=== PATIENT | male | born 1950 | race African-American/Black ===

== ENCOUNTER 2022-08-08 11:37 | Inpatient (IN) | payer OTHER, MEDICAID ==
[~2022-08-08] VITALS: Ht 172.7 cm; Wt 68.4 kg
[2022-08-08] MEDS ORDERED: IPRATROPIUM BROM 0.5 MG/2.5ML INH SOL HHN ONE (11:45)
[2022-08-08] MEDS ORDERED: methylPREDNISolone SOD SUCC 125 MG/2 ML VL IV ONE (11:45)
[2022-08-08] MEDS ORDERED: ALBUTEROL SULF 2.5 MG/0.5ML(0.5%) NEB SOLN HHN ONE (11:45)
[2022-08-08 12:17] LABS: Basophils # (auto) 0 10 ^3/uL (0-0.2); Basophils % (auto) 0.5 % (0.0-2.0); Eosinophils # (auto) 0.1 10 ^3/uL (0-0.8); Eosinophils % (auto) 1.9 % (0.0-7.0); Hematocrit 38.8 % (41.0-53.0); Hemoglobin 12.4 g/dL (13.5-17.5); Lymphocytes # (auto) 1.1 10 ^3/uL (0.4-5.4); Lymphocytes % (auto) 13.7 % (10.0-50.0); Mean Corpuscular Hemoglobin 24.2 pg (28.0-32.0); Mean Corpuscular Hgb Conc. 31.9 g/dL (32.0-36.0); Mean Corpuscular Volume 75.9 fL (80.0-100.0); Monocytes # (auto) 1.3 10 ^3/uL (0-1.3); Monocytes % (auto) 16.4 % (0.0-12.0); Neutrophils # (auto) 5.3 10 ^3/uL (1.6-8.6); Neutrophils % (auto) 67.5 % (37.0-80.0); Red Blood Cells 5.12 10^6/uL (4.5-5.90); Red Cell Distribution Width 14.6 % (11.8-14.3); White Blood Cell 7.8 10^3/uL (4.4-10.8)
[2022-08-08 12:34] LABS: Albumin 3.1 g/dL (3.4-5.0); Calcium 7.9 mg/dL (8.5-10.1); Magnesium 3.4 mg/dL (1.6-2.6); Potassium 4.2 mmol/L (3.5-5.1)
[2022-08-08 12:37] LABS: BUN/Creatinine Ratio 12.1; Bilirubin, Total 0.4 mg/dL (0.2-1.0); Total Protein 6.8 g/dL (6.4-8.2)
[2022-08-08] MEDS ORDERED: ASPirin 81 mg TAB PO ONE (13:30)
[2022-08-08] MEDS ORDERED: AMLO-489 PO (16:30)
[2022-08-08] MEDS ORDERED: ATO40T PO (16:30)
[2022-08-08] MEDS ORDERED: PANTOPRAZOLE 40 MG/10 ML VIAL INJ IV ONE (16:45)
[2022-08-08] MEDS ORDERED: IPRATROPIUM BROM 0.5 MG/2.5ML INH SOL NEB PRN (16:45)
[2022-08-08] MEDS ORDERED: ALBUTEROL SULF 2.5 MG/0.5ML(0.5%) NEB SOLN NEB PRN (16:45)
[2022-08-08 17:45] LABS: Cholesterol 86 mg/dL (< 200)
[2022-08-08 17:47] LABS: HDL Cholesterol 60 mg/dL (40-59); LDL Cholesterol 26 mg/dL (< 100); Triglycerides 45 mg/dL (< 150)
[2022-08-08] MEDS: IPRATROPIUM BROM 0.5 MG/2.5ML INH SOL NEB SCH (18:00)
[2022-08-08] MEDS: ALBUTEROL SULF 2.5 MG/0.5ML(0.5%) NEB SOLN NEB SCH (18:00)
[2022-08-08 18:06] LABS: Ferritin 220.9 ng/mL (10-322)
[2022-08-08 18:07] LABS: Folate (Folic Acid) > 24.00 ng/mL (5.38-24)
[2022-08-08 19:50] LABS: INR 0.97 (0.9-1.15)
[2022-08-08] MEDS ORDERED: ALBUTEROL MEDNEB 2.5 mg/3ml NEB ONE (21:32)
[2022-08-08] MEDS: methylPREDNISolone SOD SUCC 125 MG/2 ML VL IV SCH (22:18)
[2022-08-08] MEDS: FERROUS SULFATE 325mg EC TAB PO SCH (22:18)
[2022-08-08 23:10] VITALS: BP 122/63
[2022-08-09] MEDS: IPRATROPIUM BROM 0.5 MG/2.5ML INH SOL NEB SCH ×3 (06:00→20:41)
[2022-08-09] MEDS: ALBUTEROL SULF 2.5 MG/0.5ML(0.5%) NEB SOLN NEB SCH ×2 (06:00→12:00)
[2022-08-09] MEDS: FERROUS SULFATE 325mg EC TAB PO SCH ×3 (06:41→21:33)
[2022-08-09 06:43] LABS: Albumin 2.5 g/dL (3.4-5.0); BUN/Creatinine Ratio 16.9; Calcium 7.9 mg/dL (8.5-10.1); Potassium 4.4 mmol/L (3.5-5.1)
[2022-08-09 06:53] LABS: Bilirubin, Total 0.3 mg/dL (0.2-1.0); Total Protein 6.7 g/dL (6.4-8.2)
[2022-08-09 06:59] LABS: Basophils # (auto) 0 10 ^3/uL (0-0.2); Basophils % (auto) 0.2 % (0.0-2.0); Eosinophils # (auto) 0 10 ^3/uL (0-0.8); Eosinophils % (auto) 0.1 % (0.0-7.0); Hematocrit 35.2 % (41.0-53.0); Hemoglobin 11.3 g/dL (13.5-17.5); Lymphocytes # (auto) 0.6 10 ^3/uL (0.4-5.4); Lymphocytes % (auto) 11.3 % (10.0-50.0); Mean Corpuscular Hemoglobin 24.5 pg (28.0-32.0); Mean Corpuscular Hgb Conc. 32.2 g/dL (32.0-36.0); Mean Corpuscular Volume 76.2 fL (80.0-100.0); Monocytes # (auto) 0.2 10 ^3/uL (0-1.3); Monocytes % (auto) 4.5 % (0.0-12.0); Neutrophils # (auto) 4.1 10 ^3/uL (1.6-8.6); Neutrophils % (auto) 83.9 % (37.0-80.0); Nucleated Red Blood Cells % 0.1 %; Red Blood Cells 4.62 10^6/uL (4.5-5.90); Red Cell Distribution Width 14.2 % (11.8-14.3); White Blood Cell 4.9 10^3/uL (4.4-10.8)
[2022-08-09] MEDS: amLODIPine BESYLATE 5 MG TAB PO SCH (08:59)
[2022-08-09] MEDS: methylPREDNISolone SOD SUCC 125 MG/2 ML VL IV SCH ×2 (08:59→21:33)
[2022-08-09] MEDS: ATORVASTATIN 20 MG TAB PO SCH (09:00)
[2022-08-09] MEDS: ASPirin 81 mg TAB PO SCH (09:00)
[2022-08-09] MEDS ORDERED: ENOXAPARIN SOD 40 MG/0.4 ML SYRINGE SC SCH (10:00)
[2022-08-09] MEDS ORDERED: PANTOPRAZOLE 40 MG/10 ML VIAL INJ IV SCH (10:00)
[2022-08-09 11:42] VITALS: BP 127/68
[2022-08-09] MEDS ORDERED: ALLO100T PO (12:27)
[2022-08-09] MEDS ORDERED: DOXYCYCLINE 100 MG TAB/CAP PO ONE (15:00)
[2022-08-09] MEDS ORDERED: ALBUTEROL MEDNEB 2.5 mg/3ml NEB NEB PRN (15:30)
[2022-08-09] MEDS: ALBUTEROL MEDNEB 2.5 mg/3ml NEB NEB SCH (20:40)
[2022-08-09] MEDS: DOXYCYCLINE 100 MG TAB/CAP PO SCH (21:33)
[2022-08-09 22:00] VITALS: BP 124/61
[2022-08-09 23:56] LABS: Urine Bacteria NONE SEEN /hpf (None Seen); Urine Blood Negative /uL (Negative); Urine Specific Gravity 1.017 (1.001-1.035); Urine WBC 2 /hpf (0 - 3)
[2022-08-10] MEDS ORDERED: HYDR-4902 PO (00:03)
[2022-08-10 05:00] VITALS: BP 116/68
[2022-08-10] MEDS: FERROUS SULFATE 325mg EC TAB PO SCH ×2 (05:48→18:46)
[2022-08-10] MEDS: HYDROcodone-ACET 5/325MG TAB PO PRN ×2 (06:12→18:46)
[2022-08-10] MEDS: ALBUTEROL MEDNEB 2.5 mg/3ml NEB NEB SCH ×3 (06:47→18:50)
[2022-08-10] MEDS: IPRATROPIUM BROM 0.5 MG/2.5ML INH SOL NEB SCH ×3 (06:47→18:50)
[2022-08-10] MEDS: ASPirin 81 mg TAB PO SCH (08:56)
[2022-08-10] MEDS: methylPREDNISolone SOD SUCC 125 MG/2 ML VL IV SCH ×2 (08:56→20:53)
[2022-08-10] MEDS: ALLOPURINOL 100 MG TAB PO SCH (08:57)
[2022-08-10] MEDS: amLODIPine BESYLATE 5 MG TAB PO SCH (08:57)
[2022-08-10] MEDS: DOXYCYCLINE 100 MG TAB/CAP PO SCH ×2 (08:57→20:53)
[2022-08-10] MEDS: PANTOPRAZOLE 40 MG TAB PO SCH (08:57)
[2022-08-10] MEDS: ATORVASTATIN 20 MG TAB PO SCH (08:58)
[2022-08-10 09:00] VITALS: BP 118/62
[2022-08-10 13:00] VITALS: BP 111/62
[2022-08-10 16:32] VITALS: BP 119/60
[2022-08-10 22:00] VITALS: BP 121/56
[2022-08-11 05:00] VITALS: BP 107/60
[2022-08-11] MEDS: IPRATROPIUM BROM 0.5 MG/2.5ML INH SOL NEB SCH (05:50)
[2022-08-11] MEDS: ALBUTEROL MEDNEB 2.5 mg/3ml NEB NEB SCH (05:50)
[2022-08-11] MEDS: FERROUS SULFATE 325mg EC TAB PO SCH (06:38)
[2022-08-11 09:00] VITALS: BP 122/80
[2022-08-11] MEDS ORDERED: DOX100T PO (09:22)
[2022-08-11] MEDS ORDERED: METH4PAK PO (09:22)
[2022-08-11] MEDS: ATORVASTATIN 20 MG TAB PO SCH (09:44)
[2022-08-11] MEDS: ALLOPURINOL 100 MG TAB PO SCH (09:44)
[2022-08-11] MEDS: PANTOPRAZOLE 40 MG TAB PO SCH (09:44)
[2022-08-11] MEDS: DOXYCYCLINE 100 MG TAB/CAP PO SCH (09:44)
[2022-08-11] MEDS: methylPREDNISolone SOD SUCC 125 MG/2 ML VL IV SCH (09:44)
[2022-08-11] MEDS: ASPirin 81 mg TAB PO SCH (09:44)
[2022-08-11] MEDS: amLODIPine BESYLATE 5 MG TAB PO SCH (09:45)
[2022-08-11 10:40] VITALS: BP 122/80
== END 2022-08-11 11:48 | disposition home or self-care (01) | DRG 193 ==
LOC: EDBD 11:37 → ER 11:37 → EDUNIT# 11:37 → TELE 16:17 → TELE-E-ADS 08-09 11:31 → TELE-CENTR 08-09 17:45 → CENTRAL 08-10 06:02
PROVIDERS: ADMIT Registered Nurse; ATTEND Internal Medicine
DX: J18.9 Pneumonia, unspecified organism (principal); E43 Unspecified severe protein-calorie malnutrition; J96.01 Acute respiratory failure with hypoxia; J44.1 Chronic obstructive pulmonary disease with (acute) exacerbation; J44.0 Chronic obstructive pulmonary disease with (acute) lower respiratory infection; D50.9 Iron deficiency anemia, unspecified; I10 Essential (primary) hypertension; E78.5 Hyperlipidemia, unspecified; Z20.822 Contact with and (suspected) exposure to COVID-19; Z85.118 Personal history of other malignant neoplasm of bronchus and lung; Z85.46 Personal history of malignant neoplasm of prostate; Z68.22 Body mass index [BMI] 22.0-22.9, adult
CPT/HCPCS: 36415; 36600; 71045; 80053; 80061; 81001; 82607; 82728; 82746; 82805; 83036; 83540; 83550; 83605; 83615; 83735; 83880; 84443; 84484; 85025; 85045; 85384; 85610; 87040; 87426; 87804; 93005; 93306; 94640; 96374; 96375; 99291; C9113; G0378

== ENCOUNTER 2024-12-18 20:05 | Inpatient (IN) | payer OTHER, MEDICAID ==
[~2024-12-18] VITALS: Ht 167.6 cm; Wt 72.9 kg
[~2024-12-18 20:05] MED LIST: ALLO100T PO; AMLO1TAB22 PO; ATOR-507 PO; DOX100T PO; HYDR-4902 PO; METH4PAK PO
[2024-12-18] MEDS: ALBUTEROL SULF 2.5 MG/0.5ML(0.5%) NEB SOLN HHN ONE (20:43)
[2024-12-18] MEDS: IPRATROPIUM BROM 0.5 MG/2.5ML INH SOL HHN ONE (20:43)
--- NOTE | 2024-12-18 20:45 | ED.PDOC ---
SOB-HPI HPI Comments This is a 74-year-old male who comes in with chief complaint of shortness a breath. The patient states that he was short of breath and tried a breathing treatment at home without any significant relief. The patient then went to the [facility] where they also gave him a breathing treatment without significant relief. He states that the symptoms actually started on Monday. When he got to the [facility], 911 was called and the patient was transported to our facility. EN route, the patient received another breathing treatment without significant relief. Upon arrival, the patient is still taking his breathing treatment and is still stating that he is short of breath. The patient denies any chest pain, coughing or fever. He does have a history of COPD. Time Seen by MD: 20:11 Primary Care Provider: MARKIE King notes: Nurses Notes, Manager Registration Notes, Medications, Allergies (No allergies to medications) Information Source: Patient, Emergency Med Personnel Mode of Arrival: EMS Severity: Severe Timing: Days Duration: Since onset Context: At Rest PE Risk Factors: None History of: COPD, Anxiety Prehospital treatment: Beta-Agonist Tx, Commission Associate, IVF Modifying Factors: Nothing Associated Signs and Symptoms: None If cough with SOB: Non-Productive Past Medical History PAST MEDICAL HISTORY: Cancer (Cancer of the lung), COPD, High Lipids, HTN Surgical History: Denies all surgeries Family History Family History: Family hx of lung carrillo Family History (Other): Alzheimer's Social History Smoker: Non-Smoker Alcohol: Occasionally Drugs: Denies Drug Use Lives In: Home Constitutional: denies: chills, diaphoresis, fatigue, fever, malaise, sweats, weakness, others EENTM: denies: blurred vision, double vision, ear bleeding, ear discharge, ear drainage, ear pain, ear ringing, eye pain, eye redness, hearing loss, mouth pain, mouth swelling, nasal discharge, nose bleeding, nose congestion, nose pain, photophobia, tearing, throat pain, throat swelling, voice changes, others Respiratory: reports: shortness of breath, wheezing; denies: cough, hemoptysis, orthopnea, SOB at rest, SOB with excertion, stridor, others Cardiovascular: denies: chest pain, dizzy spells, diaphoresis, Dyspnea on exertion, edema, irregular heart beat, left arm pain, lightheadedness, palpitations, PND, syncope, others Gastrointestinal: denies: abdomen distended, abdominal pain, blood streaked bowels, constipated, diarrhea, dysphagia, difficulty swallowing, hematemesis, m mattie, nausea, poor appetite, poor fluid intake, rectal bleeding, rectal pain, vomiting, others Genitourinary: denies: burning, dysuria, flank pain, frequency, hematuria, incontinence, penile discharge, penile sore, pain, testicle pain, testicle swelling, urgency, others Neurological: denies: dizziness, fainting, headache, left sided numbness, left sided weakness, numbness, paresthesia, pre-existing deficit, right sided numbness, right sided weakness, seizure, speech problems, tingling, tremors, weakness, others Musculoskeletal: denies: back pain, gout, joint pain, joint swelling, muscle pain, muscle stiffness, neck pain, others Integumetry: denies: bruises, change in color, change in hair/nails, dryness, laceration, lesions, lumps, rash, wounds, others Allergic/Immunocompromised: denies: Difficulty Healing, Frequent Infections, Hives, Itching, others Hematologic/Lymphatic: denies: anemia, blood clots, easy bleeding, easy bruising, swollen glands, others Endocrine: denies: excessive hunger, excessive sweating, excessive thirst, excessive urination, flushing, intolerance to cold, intolerance to heat, unexplained weight gain, unexplained weight loss, others Psychiatric: denies: anxiety, bipolar disorder, depression, hopeless, panic disorder, schizophrenia, sleepless, suicidal, others Physical Exam General Appearance: Moderate Distress HEENT: Normal ENT Inspection, Pharynx Normal, TMs Normal Neck: Full Range of Motion, Non-Tender, Normal, Normal Inspection Respiratory: Accessory Muscle Use, Chest Non-Tender, Lungs Clear, Respiratory Distress, Wheezing Cardiovascular: No Edema, No JVD, No Murmur, No Gallop, Normal Peripheral Pulses, Regular Rate/Rhythm Breast Exam: Deferred Gastrointestinal: No Organomegaly, Non Tender, No Pulsatile Mass, Normal Bowel Sounds, Soft Genitalia: Deferred Pelvic: Deferred Rectal: Deferred Extremities: No calf tenderness, Normal capillary refill, No pedal edema Musculoskeletal : Apperance: Normal Neurologic: Alert, spooler operator automatic II-XII nml as Tested, Motor Weakness, Normal Affect, Normal Mood, No Sensory Deficits Cerebellar Function: Normal Reflexes: Normal Skin: Dry, Normal Color, Warm Lymphatic: No Adenopathy Was a procedure done? Was a procedure done?: No Differential Dx Differential Diagnosis: Asthma, Bronchitis, CHF, COPD, Pneumonia X-Ray, Labs, Meds, VS Vital Signs Date Time Temp Pulse Resp B/P (MAP) Pulse Ox O2 Delivery O2 Flow Rate FiO2 12/18/24 20:43 18 95 Nasal Cannula* 6 44 12/18/24 20:15 98.5 98 20 138/76 (96) 96 98.5 Lab Test 12/18/24 20:39 Range/Units White Blood Count 12.7 H 4.4-10.8 10^3/uL Red Blood Count 5.77 4.5-5.90 10^6/uL Hemoglobin 12.5 L 13.5-17.5 g/dL Hematocrit 39.0 L 41.0-53.0 % Mean Corpuscular Volume 67.7 L 80.0-100.0 fL Mean Corpuscular Hemoglobin 21.6 L 28.0-32.0 pg Mean Corpuscular Hemoglobin Concent 31.9 L 32.0-36.0 g/dL Red Cell Distribution Width 19.8 H 11.8-14.3 % Platelet Count 276 140-450 10^3/uL Mean Platelet Volume 9.0 6.9-10.8 fL Neutrophils (%) (Auto) 85.7 H 37.0-80.0 % Lymphocytes (%) (Auto) 6.5 L 10.0-50.0 % Monocytes (%) (Auto) 7.7 0.0-12.0 % Eosinophils (%) (Auto) 0.0 0.0-7.0 % Basophils (%) (Auto) 0.1 0.0-2.0 % Neutrophils # (Auto) 10.8 H 1.6-8.6 10 ^3/uL Lymphocytes # (Auto) 0.8 0.4-5.4 10 ^3/uL Monocytes # (Auto) 1.0 0-1.3 10 ^3/uL Eosinophils # (Auto) 0 0-0.8 10 ^3/uL Basophils # (Auto) 0 0-0.2 10 ^3/uL Nucleated Red Blood Cells 0.0 % Platelet Estimate Pending Sodium Level 137 136-145 mmol/L Potassium Level 3.4 L 3.5-5.1 mmol/L Chloride Level 97 L 98-107 mmol/L Carbon Dioxide Level 26 20-31 mmol/L Anion Gap 14 5-15 Blood Urea Nitrogen 19 9-23 mg/dL Creatinine 1.11 0.700-1.30 mg/dL Glomerular Filtration Rate Calc 70 >90 mL/min BUN/Creatinine Ratio 17.1 10.0-20.0 Serum Glucose 150 H 74-106 mg/dL Calcium Level 8.8 8.7-10.4 mg/dL B-Type Natriuretic Peptide 504.75 0-100 pg/mL Current Medications Medications (Trade) Dose Ordered Sig/Nirav Route Start Time Stop Time Status Last Admin Ipratropium [place] (Atrovent Medneb) 1 mg ONCE ONCE N 12/18/24 20:15 12/18/24 20:16 DC 12/18/24 20:43 Albuterol (Ventolin Medneb) 20 mg ONCE ONCE HHN 12/18/24 20:15 12/18/24 20:16 DC 12/18/24 20:43 IV Hep-Lock was established The patient is being given a breathing treatment of albuterol and Atrovent The patient is also now given Solu-Medrol 125 mg IV push The patient is being admitted to the hospitalist The chest x-ray shows no sign of any infiltrates at this time We did speak with Markie and mely authorization for admission The patient is currently now on 3 L nasal cannula We did tried to turn the oxygen somewhat down but the patient's oxygen saturat ion drops down into the 90% range We feel that the patient is unstable for transfer at this time The [place] authorization number for admission is [id number] Images Reviewed?: Images reviewed and evaluated by me Time of 1ST Reevaluation: 20:42 Reevaluation 1ST: Unchanged Patient Education/Counseling: Diagnosis, Treatment, Prognosis Family Education/Counseling: No Family Present SEPSIS Sepsis Screen Physician Orders Complete Blood Count (12/18/24 20:15) Med Neb Initial Treatment (12/18/24 20:15) Chest Portable (12/18/24 20:15) Heplock Iv (12/18/24 20:15) Pulse Oximetry (12/18/24 20:15) Commission Associate (12/18/24 20:15) Blood Pressure (12/18/24 20:15) Electrocardigram (12/18/24 20:15) Rbc Morphology (12/18/24 20:39) Vital Signs Date Time Temp Pulse Resp B/P (MAP) Pulse Ox O2 Delivery O2 Flow Rate FiO2 12/18/24 20:43 18 95 Nasal Cannula* 6 44 12/18/24 20:15 98.5 98 20 138/76 (96) 96 98.5 Laboratory Tests Test 12/18/24 20:39 White Blood Count 12.7 10^3/uL (4.4-10.8) H Medications Medications Dose Ordered Sig/Nirav Route Start Time Stop Time Status Last Admin Dose Admin Albuterol 20 mg ONCE ONCE N 12/18/24 20:15 12/18/24 20:16 DC 12/18/24 20:43 Ipratropium [place] 1 mg ONCE ONCE [facility] 12/18/24 20:15 12/18/24 20:16 DC 12/18/24 20:43 Departure 1 Departure Time of Disposition: 20:44 Impression: Primary Impression: Acute respiratory failure Qualified Codes: J96.01 - Acute respiratory failure with hypoxia Additional Impression: COPD exacerbation Disposition: 09 ADMITTED INPATIENT Admit to: Tele Condition: Fair Critical Care Note Critical Care Time?: Yes (55 min-critical care time only) Stability Stability form required: Yes Unstable for transfer: Telemetry monitoring (Telemetry monitoring required), ED Physician Assesment (Clinical assesment) Heart Score Heart Score: Heart Score Response (Comments) Value History N/A 0 EKG N/A 0 Age N/A 0 Risk Factors N/A 0 Troponin N/A 0 Total 0 ABDON MAYNARD MD Dec 18, 2024 20:44
[2024-12-18 20:58] LABS: Basophils # (auto) 0 10 ^3/uL (0-0.2); Basophils % (auto) 0.1 % (0.0-2.0); Eosinophils # (auto) 0 10 ^3/uL (0-0.8); Hemoglobin 12.5 g/dL (13.5-17.5); Lymphocytes # (auto) 0.8 10 ^3/uL (0.4-5.4); White Blood Cell 12.7 10^3/uL (4.4-10.8)
[2024-12-18 21:02] LABS: Lymphocytes % (auto) 6.5 % (10.0-50.0); Mean Corpuscular Hemoglobin 21.6 pg (28.0-32.0); Mean Corpuscular Hgb Conc. 31.9 g/dL (32.0-36.0); Mean Corpuscular Volume 67.7 fL (80.0-100.0); Monocytes % (auto) 7.7 % (0.0-12.0); Neutrophils # (auto) 10.8 10 ^3/uL (1.6-8.6); Neutrophils % (auto) 85.7 % (37.0-80.0); Platelet Count (auto) 276 10^3/uL (140-450); Red Blood Cells 5.77 10^6/uL (4.5-5.90); Red Cell Distribution Width 19.8 % (11.8-14.3)
[2024-12-18 21:09] LABS: Sodium 137 mmol/L (136-145)
[2024-12-18 21:10] LABS: Anion Gap 14 (5-15); Carbon Dioxide 26 mmol/L (20-31)
[2024-12-18 21:11] LABS: Calcium 8.8 mg/dL (8.7-10.4)
[2024-12-18 21:16] LABS: BUN/Creatinine Ratio 17.1 (10.0-20.0); Blood Urea Nitrogen 19 mg/dL (9-23)
[2024-12-18 21:23] LABS: Chloride 97 mmol/L (98-107); Glucose 150 mg/dL (74-106); Potassium 3.4 mmol/L (3.5-5.1)
--- NOTE | 2024-12-18 21:57 | DVH ---
EXAM: XY CHEST PORTABLE TECHNIQUE: Single frontal chest radiograph CLINICAL HISTORY: sob COMPARISON: CHEST PORTABLE on DOS: 08/08/22, CXRP on DOS: 08/08/22 Findings/Impression: Frontal chest radiograph demonstrates no acute osseous or superficial soft tissue abnormalities. The trachea is midline. The cardiac silhouette and mediastinum are within normal limits. Mildly coarsened interstitial markings. Left apical capping. Small right pleural effusion and/or atelectasis. A superimposed infectious process is not excluded. Medial right lower lung field granuloma versus external artifact. No pneumothorax.
[2024-12-18 22:25] LABS: Anisocytosis Slight; Hypochromia Slight; Platelet Estimate Adequate
[2024-12-18 22:26] LABS: Ovalocytes FEW
[2024-12-18] MEDS: LORazepam 0.5 MG TAB PO ONE (23:13)
[2024-12-18] MEDS: methylPREDNISolone SOD SUCC 125 MG/2 ML VL IV ONE (23:36)
--- NOTE | 2024-12-18 23:42 | DVHHPRES ---
History of Present Illness Resident Creating Document: JUAN RIVERA RESIDENT History of Present Illness 74-year-old male patient with past medical history of COPD, lung cancer with status post resection in 2023, prostate cancer status post remission in 2023, hypertension, hyperlipidemia presented with complaints of shortness of breath that started since Monday. Patient mentioned that patient had vomiting episodes last week likely after eating "some wrong food". He also mentioned associated chills, but denied chest pain, cough, nausea, vomiting, abdominal pain. He also mentioned associated pedal edema. Patient takes 3 L of oxygen at home. He denied any headache, dizziness, seizures, orthopnea, PND, diarrhea, constipation. Past medical history COPD, lung cancer with status post resection in 2023, prostate cancer status pos t remission in 2023, hypertension, hyperlipidemia Past surgical history Lung resection 2023, prostate surgery 2023 Family history Nonsignificant Social history Patient quit smoking in 2013 Denied current smoking, alcohol, marijuana or any other drug intake Review of Systems Review of Systems As described in the HPI. Allergies: Coded Allergies: NO KNOWN ALLERGIES (Unverified , 08/08/22) Exam Vital Signs Vital Signs Date Time Temp Pulse Resp B/P (MAP) Pulse Ox O2 Delivery O2 Flow Rate FiO2 12/18/24 20:43 18 95 Nasal Cannula* 6 44 12/18/24 20:15 98.5 98 138/76 (96) 98.5 Exam Examination General Appearance: Alert, Oriented X3, Cooperative, No acute distress HEENT: EOMI Respiratory: Bilateral wheezing Cardiovascular: Regular rate, Normal S1, Normal S2 Abdominal: Normal bowel sounds Extremities: No cyanosis, No edema, Normal pulses, No tenderness/swelling Skin: No rashes, No breakdown Neuro: Normal gait, Normal speech, Strength at 5/5 X4 ext, Normal tone, Sens ation intact, Cranial nerves 3-12 NL, Reflexes 2+ Psych/Mental Status: Mental status NL, Mood NL Labs/Xrays Labs Test 12/18/24 20:39 Range/Units White Blood Count 12.7 H 4.4-10.8 10^3/uL Red Blood Count 5.77 4.5-5.90 10^6/uL Hemoglobin 12.5 L 13.5-17.5 g/dL Hematocrit 39.0 L 41.0-53.0 % Mean Corpuscular Volume 67.7 L 80.0-100.0 fL Mean Corpuscular Hemoglobin 21.6 L 28.0-32.0 pg Mean Corpuscular Hemoglobin Concent 31.9 L 32.0-36.0 g/dL Red Cell Distribution Width 19.8 H 11.8-14.3 % Platelet Count 276 140-450 10^3/uL Mean Platelet Volume 9.0 6.9-10.8 fL Neutrophils (%) (Auto) 85.7 H 37.0-80.0 % Lymphocytes (%) (Auto) 6.5 L 10.0-50.0 % Monocytes (%) (Auto) 7.7 0.0-12.0 % Eosinophils (%) (Auto) 0.0 0.0-7.0 % Basophils (%) (Auto) 0.1 0.0-2.0 % Neutrophils # (Auto) 10.8 H 1.6-8.6 10 ^3/uL Lymphocytes # (Auto) 0.8 0.4-5.4 10 ^3/uL Monocytes # (Auto) 1.0 0-1.3 10 ^3/uL Eosinophils # (Auto) 0 0-0.8 10 ^3/uL Basophils # (Auto) 0 0-0.2 10 ^3/uL Nucleated Red Blood Cells 0.0 % Platelet Estimate Adequate Hypochromasia (manual) Slight Anisocytosis (manual) Slight Microcytosis Marked Ovalocytes Few Sodium Level 137 136-145 mmol/L Potassium Level 3.4 L 3.5-5.1 mmol/L Chloride Level 97 L 98-107 mmol/L Carbon Dioxide Level 26 20-31 mmol/L Anion Gap 14 5-15 Blood Urea Nitrogen 19 9-23 mg/dL Creatinine 1.11 0.700-1.30 mg/dL Glomerular Filtration Rate Calc 70 >90 mL/min BUN/Creatinine Ratio 17.1 10.0-20.0 Serum Glucose 150 H 74-106 mg/dL Calcium Level 8.8 8.7-10.4 mg/dL B-Type Natriuretic Peptide 504.75 0-100 pg/mL Assessment/Plan Assessment/Plan Assessment/plan # acute on chronic hypoxic respiratory failure likely due to COPD exacerbation Currently on 6 L # acute COPD exacerbation Prednisolone 40 mg daily for five days IV antibiotics, ceftriaxone and azithromycin for possible underlying pneumonia Ipratropium albuterol p.r.n. Chest x-ray COVID flu MRSA screen #?sepsis due to CAP -judicious use of IV fluids -IV antibiotics -lactic acid #? Community-acquired pneumonia, Gram-positive/Gram-negative -MRSA screen IV antibiotics # bilateral pedal pitting edema Echocardiogram BNP # history of lung and prostate cancer # hypertension Resume home Meds # hyperlipidemia Resume home Meds Case discussion with Dr. Childs Plan discussed with: Patient, Other My Orders Orders - JUAN RIVERA RESIDENT Procedure Category Date Status Time Admit ADMIT 12/18/24 Transmitted 23:40 Oxygen By Nasal RT 12/18/24 Transmitted Cannula 23:40 Stat Ekg For Chest [facility] 12/18/24 In Process Pain 23:40 Notify Md Of Changes [facility] 12/18/24 In Process From Base 23:40 Improvement Intern For [facility] 12/18/24 In Process 24 Hours 23:40 Emergency Dysrhythmia [facility] 12/18/24 In Process Protocol 23:40 Rhythm Strips Once [facility] 12/18/24 In Process Every Shift 23:40 Date of Service: Dec 18, 2024 Billing Provider: STEFANI CHILDS MD Common Visit Codes: [id number] INP/OBS CARE (HIGH) Secondary Visit Codes: [id number] CARE PLAN 30 MINUTES JUAN RIVERA RESIDENT Dec 18, 2024 23:42
[2024-12-19] VITALS (21 sets, daily range): BP systolic 132–176; BP diastolic 62–86; PULSE 80–108; RESP 16–26; TEMP 97.6–98.2; O2SAT 90–100
[2024-12-19] MEDS: IPRATROPIUM BROM 0.5 MG/2.5ML INH SOL NEB PRN (02:02)
[2024-12-19] MEDS: ALBUTEROL SULF 2.5 MG/0.5ML(0.5%) NEB SOLN NEB PRN (02:02)
[2024-12-19] MEDS: POTASSIUM EFFERVESENT TAB 25 MEQ PO ONE (04:32)
[2024-12-19] MEDS: cefTRIAXone 1GM/50ML D5W 50 ML IV ONE (04:33)
[2024-12-19] MEDS: AZITHROMYCIN 500MG/ 250ML 250 ML IV ONE (04:41)
[2024-12-19] MEDS: IPRATROPIUM BROM 0.5 MG/2.5ML INH SOL NEB ONE (04:54)
[2024-12-19] MEDS: ALBUTEROL SULF 2.5 MG/0.5ML(0.5%) NEB SOLN NEB ONE (04:54)
[2024-12-19] MEDS: SODIUM CHLORIDE 0.9% 250 ML IV ONE (06:50)
[2024-12-19 06:52] LABS: Urine Bacteria None Seen /hpf (None Seen)
[2024-12-19 07:06] LABS: Urine Blood TRACE /uL (Negative); Urine Clarity Clear (Clear); Urine Color Yellow (Yellow); Urine Protein, UAD 1+ (Negative); Urine Specific Gravity 1.021 (1.001-1.035); Urine Squamous Epithelial Cell FEW /hpf (<5); Urine Urobilinogen Normal (Negative); Urine WBC 1 /HPF (0-3); Urine pH 5.5 (5.0-9.0)
[2024-12-19 07:52] LABS: Mean Corpuscular Hemoglobin 21.5 pg (28.0-32.0)
[2024-12-19 07:55] LABS: Hematocrit 38.2 % (41.0-53.0); Hemoglobin 12.1 g/dL (13.5-17.5); Mean Corpuscular Hgb Conc. 31.5 g/dL (32.0-36.0); Mean Corpuscular Volume 68.1 fL (80.0-100.0); Platelet Count (auto) 234 10^3/uL (140-450); Red Blood Cells 5.62 10^6/uL (4.5-5.90); Red Cell Distribution Width 19.9 % (11.8-14.3); White Blood Cell 12.6 10^3/uL (4.4-10.8)
[2024-12-19] MEDS: predniSONE 20 MG TAB PO SCH (07:55)
[2024-12-19 08:01] LABS: Basophils % (manual) 0 (0.0-2.0); Blast Cells 0; Eosinophils % (manual) 0 (0-7); Metamyelocytes % 0; Myelocytes % 0; Promyelocytes % 0; Reactive Lymphocytes 0
[2024-12-19 08:10] LABS: Albumin 3.9 g/dL (3.2-4.8); Anion Gap 14 (5-15); BUN/Creatinine Ratio 15.7 (10.0-20.0); Blood Urea Nitrogen 16 mg/dL (9-23); Carbon Dioxide 23 mmol/L (20-31); Magnesium 2.3 mg/dL (1.6-2.6); Potassium 3.9 mmol/L (3.5-5.1)
[2024-12-19 08:11] LABS: Bilirubin, Total 0.4 mg/dL (0.2-1.0)
[2024-12-19 08:12] LABS: Alanine Aminotransferase 48 U/L (7-40); Alkaline Phosphatase 215 U/L (46-116); Aspartate Aminotransferase 50 U/L (<34); Calcium 8.5 mg/dL (8.7-10.4); Chloride 97 mmol/L (98-107); Glucose 227 mg/dL (74-106); Sodium 134 mmol/L (136-145)
[2024-12-19 08:16] LABS: COVID19 ANTIGEN SOFIA FIA NEGATIVE (NEGATIVE); Rapid Influenza A Negative (Negative); Rapid Influenza B Negative (Negative)
[2024-12-19] MEDS: ENOXAPARIN SOD 40 MG/0.4 ML SYRINGE SC SCH (08:38)
[2024-12-19 08:41] LABS: Band Neutrophils % (manual) 4; Lymphocytes % (manual) 4 (10.0-50.0); Monocytes % (manual) 6 (0-12)
[2024-12-19] MEDS: LORazepam 0.5 MG TAB PO PRN (08:42)
[2024-12-19] MEDS: cefTRIAXone 1GM/50ML D5W 50 ML IV SCH (08:42)
[2024-12-19 08:44] LABS: Anisocytosis Slight; Hypochromia Slight; Ovalocytes FEW; Platelet Estimate Adequate; Tear Drop Cells FEW
[2024-12-19] MEDS: amLODIPine BESYLATE 5 MG TAB PO SCH (10:47)
[2024-12-19] MEDS: FUROSEMIDE 40 MG/4 ML VIAL IV SCH (10:48)
[2024-12-19] MEDS ORDERED: methylPREDNISolone SOD SUCC 40 MG/ML VL IV SCH (14:00)
--- NOTE | 2024-12-19 14:41 | DVHPN2 ---
Progress Note Date Seen: Dec 19, 2024 Medical Necessity Reason Pt with a Central, PICC or Fol: No Subjective Patient reports: No new complaints Review of Systems: HEENT:Normal, CVS:Normal, RESPIRATORY:Normal, GI:Normal, :Normal, MSK:Normal, NEURO:Normal Objective vital signs Vital Sign Date Time Temp Pulse Resp B/P (MAP) Pulse Ox O2 Delivery O2 Flow Rate FiO2 12/19/24 14:04 98 20 100 12/19/24 13:58 Nasal Cannula* 4 36 12/19/24 12:00 138/90 (106) 12/19/24 09:25 98.1 98.1 medications Current Medications Medications Dose Ordered Sig/Nirav Route Start Time Stop Time Status Last Admin Dose Admin Ceftriaxone Sodium 50 ml @ 100 mls/hr DAILY@09 IV 12/19/24 09:00 12/19/24 08:42 100 MLS/HR Albuterol 2.5 mg Q4HPRN PRN NEB 12/19/24 00:00 12/19/24 13:57 2.5 MG Enoxaparin Sodium 40 mg DAILY SC 12/19/24 10:00 Amlodipine Besylate 5 mg DAILY PO 12/19/24 10:00 12/19/24 10:47 5 MG Atorvastatin Calcium 40 mg HS PO 12/19/24 22:00 Lorazepam 1 mg Q12HP PRN PO 12/19/24 08:30 12/19/24 08:42 1 MG Furosemide 40 mg DAILY IV 12/19/24 10:00 12/19/24 10:48 40 MG Methylprednisolone Sodium Succinate 20 mg BID IV 12/19/24 22:00 Albuterol 2.5 mg Q6HWA NEB 12/19/24 18:00 Ipratropium [place] 0.5 mg Q6HWA NEB 12/19/24 18:00 Allopurinol 100 mg DAILY PO 12/20/24 10:00 Azithromycin 500 mg DAILY PO 12/20/24 10:00 Examination: GENERAL:Normal, HEENT:Normal, NECK:Normal, LUNGS:Normal, LUNGS:Abnormal (on oxygen), CVS:Normal, ABDOMEN:Normal, MSK:Normal, MSK:Abnormal (edema++), SKIN:Normal, NEURO:Normal, :Normal laboratory and microbiology Laboratory Tests 12/19/24 06:33 Test 12/19/24 06:33 Range/Units Serum Glucose 227 H 74-106 mg/dL Problem List/Assessment/Plan Problem List/Assessment/Plan * Acute on chronic respiratory failure: cont oxygen * Chronic obstructive pulmonary disease exacerbation: cont meds * Questionable pneumonia: gram positive/neg: cont antibiotics * Hypertension. * Lung cancer with a history of metastasis s/p surgery * Prostate cancer. * acute diastolic/systolic heart failure: lasix iv, echo unstable for transfer advance care planning- full code- time spent 19 mins Plan discussed with: Patient My Orders My Orders Orders - PEDRO EVANS MD Procedure Category Date Status Time Methylprednisolone PHA 12/19/24 In Process Sod Succ (Solu Medrol 22:00 Albuterol Medneb PHA 12/19/24 In Process (Ventolin Medneb) 18:00 Ipratropium Medneb PHA 12/19/24 In Process (Atrovent Medneb) 18:00 Allopurinol Tablet PHA 12/20/24 In Process (Zyloprim Tablet) 10:00 Azithromycin Tablet PHA 12/20/24 In Process (Zithromax Tablet) 10:00 Complete Blood Count LAB 12/20/24 Verified 06:00 Comprehensive LAB 12/20/24 Verified Metabolic Panel 06:00 Date of Service: Dec 19, 2024 Billing Provider: PEDRO EVANS MD Common Visit Codes: [id number] INP/OBS CARE(HIGH) Secondary Visit Codes: [id number] CARE PLAN 30 MINUTES PEDRO EVANS MD Dec 19, 2024 14:41
--- NOTE | 2024-12-19 16:06 | DVH ---
EXAM: NM NM VQ SCAN HISTORY: PULMONARY EMBOLISM COMPARISON: None TECHNIQUE: Following the administration of the ventilation agent, standard projections of the lungs were acquired. The same images were repeated after administration of the perfusion agent. Findings: Ventilation images demonstrate homogenous distribution of radiotracer throughout both lungs. Perfusion images demonstrate homogeneous distribution of radiotracer throughout both lungs. No periph eral wedge-shaped moderate or large subsegmental or segmental mismatched perfusion defects to suggest acute pulmonary embolism. Impression: 1. Based on PIOPED criteria, low probability for pulmonary embolism.
[2024-12-19] MEDS ORDERED: ASPI1TAB20 PO (18:06)
[2024-12-19] MEDS ORDERED: VENL75CA78 PO (18:06)
[2024-12-19] MEDS ORDERED: MEGE20TA4 PO (18:06)
[2024-12-19] MEDS ORDERED: MELO7.5T7 PO (18:06)
[2024-12-19] MEDS ORDERED: POTA-36 PO (18:06)
[2024-12-19] MEDS ORDERED: SENN-58 PO (18:06)
[2024-12-19] MEDS ORDERED: FURO20TA3 PO (18:06)
[2024-12-19] MEDS ORDERED: PRED20TA2 PO (18:06)
[2024-12-19] MEDS ORDERED: LACT10PA2 PO (18:06)
[2024-12-19] MEDS ORDERED: NALO0.4I4 IJ (18:06)
[2024-12-19] MEDS ORDERED: LORA-1123 PO (18:06)
[2024-12-19] MEDS ORDERED: TAMS0.4C39 PO (18:06)
[2024-12-19] MEDS ORDERED: [UNRECOGNIZED DRUG - CODE] PO (18:06)
[2024-12-19] MEDS ORDERED: B-CO1CAP18 PO (18:06)
[2024-12-19] MEDS ORDERED: ALEN70TA74 PO (18:06)
[2024-12-19] MEDS: ALBUTEROL SULF 2.5 MG/0.5ML(0.5%) NEB SOLN NEB SCH (18:33)
[2024-12-19] MEDS: IPRATROPIUM BROM 0.5 MG/2.5ML INH SOL NEB SCH (18:33)
[2024-12-19] MEDS: ATORVASTATIN 20 MG TAB PO SCH (23:32)
[2024-12-19] MEDS: methylPREDNISolone SOD SUCC 40 MG/ML VL IV SCH (23:33)
[2024-12-20] VITALS (18 sets, daily range): BP systolic 125–147; BP diastolic 76–88; PULSE 69–110; RESP 16–20; TEMP 86.5–98.5; O2SAT 90–100
[2024-12-20] MEDS: HYDROcodone-ACET 10/325MG TAB PO ONE (04:11)
[2024-12-20] MEDS ORDERED: HYDROcodone-ACET 5/325MG TAB PO PRN (04:15)
[2024-12-20 07:20] LABS: Basophils # (auto) 0 10 ^3/uL (0-0.2); Basophils % (auto) 0.2 % (0.0-2.0); Eosinophils # (auto) 0 10 ^3/uL (0-0.8); Hemoglobin 11.6 g/dL (13.5-17.5); Lymphocytes # (auto) 0.5 10 ^3/uL (0.4-5.4); Monocytes # (auto) 1.1 10 ^3/uL (0-1.3); Nucleated Red Blood Cells % 0.2 %
[2024-12-20 07:24] LABS: Hematocrit 36.5 % (41.0-53.0); Mean Corpuscular Hemoglobin 21.2 pg (28.0-32.0); Mean Corpuscular Hgb Conc. 31.7 g/dL (32.0-36.0); Mean Corpuscular Volume 66.9 fL (80.0-100.0); Neutrophils # (auto) 14.3 10 ^3/uL (1.6-8.6); Neutrophils % (auto) 89.8 % (37.0-80.0); Platelet Count (auto) 247 10^3/uL (140-450); Red Blood Cells 5.45 10^6/uL (4.5-5.90); Red Cell Distribution Width 19.4 % (11.8-14.3)
[2024-12-20 07:37] LABS: Anion Gap 9 (5-15); BUN/Creatinine Ratio 19.3 (10.0-20.0); Blood Urea Nitrogen 16 mg/dL (9-23); Carbon Dioxide 27 mmol/L (20-31); Chloride 101 mmol/L (98-107); Potassium 3.5 mmol/L (3.5-5.1); Sodium 137 mmol/L (136-145)
[2024-12-20 07:38] LABS: Albumin 3.6 g/dL (3.2-4.8); Bilirubin, Total 0.4 mg/dL (0.2-1.0)
[2024-12-20 07:39] LABS: Alanine Aminotransferase 70 U/L (7-40); Alkaline Phosphatase 190 U/L (46-116); Aspartate Aminotransferase 63 U/L (<34); Glucose 138 mg/dL (74-106); Total Protein 5.4 g/dL (5.7-8.2)
[2024-12-20 07:43] LABS: Anisocytosis Slight; Hypochromia Slight; Large Platelets FEW; Ovalocytes FEW; Platelet Estimate Adequa
[2024-12-20] MEDS: AZITHROMYCIN 250 MG TAB PO SCH (09:56)
[2024-12-20] MEDS: ALLOPURINOL 100 MG TAB PO SCH (09:56)
[2024-12-20] MEDS ORDERED: AZITHROMYCIN 500MG/ 250ML 250 ML IV SCH (10:00)
--- NOTE | 2024-12-20 10:57 | DVHPN2 ---
Subjective The patient seen and examined at bedside. No complains today, still wheezing. Reviewed: Care Plan, H&P, Labs, Medications, Previous Orders, Radiology Changes from previous H/P or p: No Changes Objective Vitals Vital Signs Date Time Temp Pulse Resp B/P (MAP) Pulse Ox O2 Delivery O2 Flow Rate FiO2 12/20/24 09:55 126/76 12/20/24 09:05 97 Nasal Cannula 4.0 12/20/24 09:05 36 12/20/24 08:37 98.5 96 17 98.5 Intake/Output Intake and Output 12/20/24 07:00 Intake Total 700 ml Balance 700 ml Intake Oral 400 ml IV Total 300 ml # Voids 2 # Bowel Movements 1 General Appearance: Alert, Oriented X3, Cooperative, No acute distress HEENT: Atraumatic, PERRLA, EOMI, Mucous membr. moist/pink Neck: Supple Lungs: Clear to auscultation Cardiovascular: Regular rate, Normal S1, Normal S2, No murmurs, Gallops, Rubs Abdomen: Normal bowel sounds, Soft, No tenderness Neuro: Cranial nerves 3-12 NL Psych/Mental Status: Mental status NL Medications Current Medications Medications Dose Ordered Sig/Nirav Route Start Time Stop Time Status Last Admin Dose Admin Ceftriaxone Sodium 50 ml @ 100 mls/hr DAILY@09 IV 12/19/24 09:00 12/20/24 09:50 100 MLS/HR Albuterol 2.5 mg Q4HPRN PRN NEB 12/19/24 00:00 12/19/24 21:28 2.5 MG Enoxaparin Sodium 40 mg DAILY SC 12/19/24 10:00 12/20/24 09:56 40 MG Amlodipine Besylate 5 mg DAILY PO 12/19/24 10:00 12/20/24 09:53 5 MG Atorvastatin Calcium 40 mg HS PO 12/19/24 22:00 12/19/24 23:32 40 MG Lorazepam 1 mg Q12HP PRN PO 12/19/24 08:30 12/20/24 02:44 1 MG Furosemide 40 mg DAILY IV 12/19/24 10:00 12/20/24 09:55 40 MG Methylprednisolone Sodium Succinate 20 mg BID IV 12/19/24 22:00 12/20/24 09:53 20 MG Albuterol 2.5 mg Q6HWA NEB 12/19/24 18:00 12/20/24 06:50 2.5 MG Ipratropium [place] 0.5 mg Q6HWA [facility] 12/19/24 18:00 12/20/24 06:50 0.5 MG Allopurinol 100 mg DAILY PO 12/20/24 10:00 12/20/24 09:56 100 MG Azithromycin 500 mg DAILY PO 12/20/24 10:00 12/20/24 09:56 500 MG Acetaminophen/ Hydrocodone Bitart 1 tab Q6HPRN PRN PO 12/20/24 04:15 Laboratory Results Laboratory Tests 12/20/24 07:01 Chemistry Test 12/20/24 07:01 Albumin 3.6 g/dL (3.2-4.8) Calcium Level 8.0 mg/dL (8.7-10.4) L Total Protein 5.4 g/dL (5.7-8.2) L LFT Test 12/20/24 07:01 Alanine Aminotransferase (ALT) 70 U/L (7-40) H Alkaline Phosphatase 190 U/L (46-116) H Aspartate Amino Transferase (AST) 63 U/L (<34) H Total Bilirubin 0.4 mg/dL (0.2-1.0) Urinalysis Test 12/19/24 06:21 Urine Color Yellow (Yellow) Urine Clarity Clear (Clear) Urine pH 5.5 (5.0-9.0) Urine Specific [place] 1.021 (1.001-1.035) Urine Protein 1+ (Negative) H Urine Ketones Negative (Negative) Urine Blood Trace /uL (Negative) H Urine Nitrite Negative (Negative) Urine Bilirubin Negative (Negative) Urine Urobilinogen Normal mg/dL (Negative) Urine Leukocyte Esterase Negative /uL (Negative) Urine RBC 1 /hpf (0 - 3) Urine Microscopic WBC 1 /HPF (0-3) Urine Squamous Epithelial Cells Few /hpf (<5) Urine Bacteria None seen /hpf (None Seen) Urine Glucose Normal mg/dL (Normal) Labs and/or images reviewed: Labs reviewed by me Assessment/Plan Assessment/Plan * Acute on chronic respiratory failure: cont oxygen * Chronic obstructive pulmonary disease exacerbation: cont meds * Questionable pneumonia: gram positive/neg: cont antibiotics * Hypertension. * Lung cancer with a history of metastasis s/p surgery * Prostate cancer. * acute diastolic/systolic heart failure: lasix iv, echo Continue current management Stable to transfer to [place]. Plan discussed with: Patient Date of Service: Dec 20, 2024 Billing Provider: DARIAN BLANCO MD Common Visit Codes: [id number] INP/OBS CARE(HIGH) DARIAN BLANCO MD Dec 20, 2024 10:57
[2024-12-20] MEDS ORDERED: methylPREDNISolone SOD SUCC 40 MG/ML VL IV ONE (11:45)
[2024-12-20] MEDS: methylPREDNISolone SOD SUCC 40 MG/ML VL IV ONE (13:30)
[2024-12-20] MEDS ORDERED: methylPREDNISolone SOD SUCC 125 MG/2 ML VL IV SCH (14:00)
[2024-12-20] MEDS ORDERED: methylPREDNISolone SOD SUCC 125 MG/2 ML VL IV PRN (14:30)
[2024-12-20] MEDS: methylPREDNISolone SOD SUCC 125 MG/2 ML VL IV SCH (23:08)
[2024-12-21] VITALS (14 sets, daily range): BP systolic 122–162; BP diastolic 67–89; PULSE 78–107; RESP 14–20; TEMP 97.5–98.6; O2SAT 90–100
--- NOTE | 2024-12-21 00:18 | DVH ---
CT HEAD WITHOUT CONTRAST INDICATION: Weakness, AMS EXAM DATE: 12/20/2024 11:41 PM COMPARISON: None RADIATION DOSE: CTDIvol: 53.5 mGy, DLP: 965.78 mGy*cm PROCEDURE: CT scans of the head were obtained from the vertex to the skull base. Sagittal and coronal reconstructions were provided. All CT scans at this medical facility are performed using dose modulation techniques as appropriate t o a performed exam including the following: Automated exposure control was utilized; adjustment of th e MA and/or KV according to patient size; and use of iterative reconstruction technique. FINDINGS: Evaluation is degraded by motion artifact. No acute territorial infarct, intracranial hemorrhage, or mass effect. There are global involutional changes with compensatory prominence of the ventricles and sulci. Patchy periventricular and subcorti fredy white matter hypoattenuation is nonspecific but may be related to small vessel ischemic disease. The orbits are normal. The paranasal sinuses and mastoid air cells are clear. The osseous structures are unremarkable. IMPRESSION: 1. No acute territorial infarct, intracranial hemorrhage, or mass effect. 2. Age-related involutional changes. Chronic microvascular changes. 3. If clinical symptoms persist, MRI may be beneficial in further evaluation.
--- NOTE | 2024-12-22 01:14 | DVHSR ---
APPROVED REPORT EXAM: Two-dimensional and M-mode echocardiogram with Doppler and color Doppler. Blood Pressure: 134/77 mmHg INDICATION Pedal edema RISK FACTORS Height: 66, Weight: 161 DIMENSIONS LVDd3.3 (3.8-5.7cm)LA (2D) (1.9-4.0cm)Aortic Root3.5 (2.0-3.7cm) LVDs1.8 (2.5-4.0cm)LA (MM) (1.9-4.0cm)Aortic Cusp Exc1.8 (1.5-2.0cm) EF (%) 77.0 (55-70%)Rt. Atrium6.6 (1.9-4.0cm)Asc. Aorta cm IVSd1.2 (0.7-1.1cm)RV (D) (1.8-2.4cm) PWd1.5 (0.7-1.1cm) Mitral Valve MitralMitral Stenosis E wave0.52m/sMV Mean GR.mmHg A wave0.80m/sMV Peak GR.mmHg E/A ratio0.62D MVAcm2 DECEL [id number] 1/2 Timems Aortic Valve Aortic ValveAortic Stenosis LVOT Diameter2.3 (1.8-2.4cm)Doppler AVAcm2 Pulmonic Valve V21.06m/s Tricuspid Valve TR Velocity3.96m/s [id number] Other Information Technically limited study due to body habitus and patient position. Conclusion SIGNIFICANTLY DILATED RV SEVERE RV HYPOKINESIS CRITICAL PULMONARY HYPERTENSION RVSP IS 73 MM OF HG AND IS VERY HIGH DYSKINESIS OF IVS STUDY CONFIRMS END STAGE RV FAILURE LV EF IS 65% AND IS NORMAL NORMAL VALVES NO EFFUSION
== END 2024-12-21 20:05 | disposition short-term general hospital (02) | DRG 871 ==
LOC: EDBD 20:05 → ER 20:05 → TELE-EAST 23:40 → OVERFLOW 23:40 → TELE-EAST 12-19 17:00
PROVIDERS: ADMIT Internal Medicine; ATTEND Internal Medicine
DX: A41.50 Gram-negative sepsis, unspecified (principal); I50.41 Acute combined systolic (congestive) and diastolic (congestive) heart failure; J15.69 Pneumonia due to other Gram-negative bacteria; J96.21 Acute and chronic respiratory failure with hypoxia; J15.9 Unspecified bacterial pneumonia; J44.1 Chronic obstructive pulmonary disease with (acute) exacerbation; J44.0 Chronic obstructive pulmonary disease with (acute) lower respiratory infection; Z20.822 Contact with and (suspected) exposure to COVID-19; E78.5 Hyperlipidemia, unspecified; I11.0 Hypertensive heart disease with heart failure; Z82.0 Family history of epilepsy and other diseases of the nervous system; Z85.118 Personal history of other malignant neoplasm of bronchus and lung; Z85.46 Personal history of malignant neoplasm of prostate; Z87.891 Personal history of nicotine dependence; Z79.899 Other long term (current) drug therapy
CPT/HCPCS: 36415; 70450; 71045; 78582; 80048; 80053; 81001; 83735; 83880; 85007; 85025; 85027; 85379; 87040; 87081; 87426; 87804; 93306; 94640; 96374; 99291; G0378

== ENCOUNTER → 2025-02-17 | Emergency (ER) | payer OTHER, MEDICAID ==
[~2025-02-17] VITALS: Ht 167.6 cm; Wt 72.7 kg
[~2025-02-17] MED LIST changes: +ALEN70TA74 PO; +ASPI1TAB20 PO; +B-CO1CAP18 PO; +FURO20TA3 PO; +LACT10PA2 PO; +LORA-1123 PO; +MEGE20TA4 PO; +MELO7.5T7 PO; +NALO0.4I4 IJ; +POTA-36 PO; +PRED20TA2 PO; +SENN-58 PO; +TAMS0.4C39 PO; +VENL75CA78 PO; +[UNRECOGNIZED DRUG - CODE] PO
[2025-02-17 19:06] VITALS: BP 159/81; RESP 18; TEMP 98.2; O2SAT 96
[2025-02-17 19:09] VITALS: PULSE 106
--- NOTE | 2025-02-18 06:22 | ECG ---
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
== END | disposition left against medical advice (07) ==
LOC: ER 19:01
DX: R56.9 Unspecified convulsions (principal); Z53.21 Procedure and treatment not carried out due to patient leaving prior to being seen by health care provider
CPT/HCPCS: 93005

== ENCOUNTER 2025-03-30 02:51 | Inpatient (IN) | payer OTHER, MEDICAID ==
[2025-03-30] VITALS (9 sets, daily range): BP systolic 162; BP diastolic 94; PULSE 94–108; RESP 13–25; TEMP 97.7; O2SAT 92–100
[~2025-03-30] VITALS: Ht 167.6 cm; Wt 72.0 kg
[2025-03-30] MEDS: MAGNESIUM SULFATE 1GM/100ML 100 ML IV ONE (03:15)
[2025-03-30] MEDS: methylPREDNISolone SOD SUCC 125 MG/2 ML VL IV ONE (03:15)
--- NOTE | 2025-03-30 03:16 | ED.PDOC ---
History of Present Illness HPI Comments 75-year-old male brought by paramedics because he was experiencing shortness a breath 1-1/2 hours prior to coming to the ER. Patient does have a history of hypertension COPD normally is on 4 L oxygen at home. He does take a water pill for bilateral lower extremity swelling. No history of CHF. His heart rate was 105 with a blood pressure 158/90. Placed on 6 L oxygen. He is using accessory muscles to help him breathe. Chief Complaint: Shortness of Breath Time Seen by MD: 03:01 Primary Care Provider: MARKIE Reviewed Notes: Nurses Notes, Medications, Allergies Allergies: Coded Allergies: NO KNOWN ALLERGIES (Unverified , 08/08/22) Home Meds Active Scripts Methylprednisolone (Medrol Dosepak) 4 Mg Kevin, 4 MG PO UD, #21 TAB UAD Prov:PEDRO EVANS MD 08/11/22 Doxycycline Monohydrate (Doxycycline Monohydrate) 100 Mg Tab, 100 MG PO Q12HR for 5 Days, #10 TAB Prov:PEDRO EVANS MD 08/11/22 Reported Medications B-Complex Vitamins (Vitamin B Complex) 1 Cap Cap, 1 CAP PO, CAP 12/19/24 Meloxicam (Meloxicam) 7.5 Mg Tab, 7.5 MG PO, TAB 12/19/24 Furosemide (Furosemide) 20 Mg Tab, 1 TAB PO DAILY, #90 TAB 1 Refill 12/19/24 Alendronate Sodium (Alendronate Sodium) 70 Mg Tab, 70 MG PO Q7D, TAB 12/19/24 Megestrol Acetate (Megestrol Acetate) 20 Mg Tab, 20 MG PO, TAB 12/19/24 Potassium Chloride (POTASSIUM CHLORIDE CR) 10 Meq Tb, 10 MEQ PO, TAB 12/19/24 Venlafaxine Hcl (Venlafaxine Hcl Er) 75 Mg Cap, 1 CAP PO DAILY, #90 CAP 3 Refills 12/19/24 Senna (Senokot) 8.6 Mg Tab, 8.6 MG PO, TAB 12/19/24 Naloxone HCl (Naloxone HCl) 4 Mg/10 Ml Inj, 4 MG IJ, INJ 12/19/24 Tamsulosin Hcl (Tamsulosin Hcl) 0.4 Mg Cap, 0.4 MG PO, CAP 12/19/24 Crizotinib Base (Xalkori) 50 Mg Cap, 200 MG PO, CAP 12/19/24 Aspirin (Aspir-81) 81 Mg Tab, 1 TAB PO DAILY, #30 TAB 5 Refills 12/19/24 Lorazepam (Lorazepam) 1 Mg Tab, 0.5 MG PO, TAB 12/19/24 Lactulose (Lactulose) 10 Gm Kevin, 10 GM PO, PACK 12/19/24 Prednisone (Prednisone) 20 Mg Tab, 50 MG PO, MG 12/19/24 Hydrocodone-Acetaminophen (Hydrocodone Bitartrate/AC 5-325 mg) 1 Tab Tab, 1 TAB PO Q4HPRN, TAB 08/10/22 Allopurinol (Allopurinol) 100 Mg Tab, TAB PO 08/09/22 Atorvastatin Calcium (Lipitor) 40 Mg Tab, 40 MG PO DAILY 08/08/22 Amlodipine Besylate (Amlodipine Besylate) 5 Mg Tab, 1 TAB PO DAILY 08/08/22 Information Source: Patient, Emergency Med Personnel Mode of Arrival: EMS Severity: Moderate Timing: Hours Duration: Since onset Past Medical History PAST MEDICAL HISTORY: Cancer, COPD, High Lipids, HTN Surgical History: Denies all surgeries Family History Family History: Family hx of lung carrillo Family History (Other): Alzheimer's Social History Smoker: Non-Smoker Alcohol: Occasionally Drugs: Denies Drug Use Lives In: Home Constitutional: denies: chills, diaphoresis, fatigue, fever, malaise, sweats, weakness, others EENTM: denies: blurred vision, double vision, ear bleeding, ear discharge, ear drainage, ear pain, ear ringing, eye pain, eye redness, hearing loss, mouth pain, mouth swelling, nasal discharge, nose bleeding, nose congestion, nose pain, photophobia, tearing, throat pain, throat swelling, voice changes, others Respiratory: reports: shortness of breath; denies: cough, hemoptysis, orthopnea, SOB at rest, SOB with excertion, stridor, wheezing, others Cardiovascular: denies: chest pain, dizzy spells, diaphoresis, Dyspnea on exertion, edema, irregular heart beat, left arm pain, lightheadedness, palpitations, PND, syncope, others Gastrointestinal: denies: abdomen distended, abdominal pain, blood streaked bowels, constipated, diarrhea, dysphagia, difficulty swallowing, hematemesis, melena, nausea, poor appetite, poor fluid intake, rectal bleeding, rectal pain, vomiting, others Genitourinary: denies: burning, dysuria, flank pain, frequency, hematuria, incontinence, penile discharge, penile sore, pain, testicle pain, testicle swelling, urgency, others Neurological: denies: dizziness, fainting, headache, left sided numbness, left sided weakness, numbness, paresthesia, pre-existing deficit, right sided numbness, right sided weakness, seizure, speech problems, tingling, tremors, weakness, others Musculoskeletal: denies: back pain, gout, joint pain, joint swelling, muscle pain, muscle stiffness, neck pain, others Integumetry: denies: bruises, change in color, change in hair/nails, dryness, laceration, lesions, lumps, rash, wounds, others Allergic/Immunocompromised: denies: Difficulty Healing, Frequent Infections, Hives, Itching, others Hematologic/Lymphatic: denies: anemia, blood clots, easy bleeding, easy bruising, swollen glands, others Endocrine: denies: excessive hunger, excessive sweating, excessive thirst, excessive urination, flushing, intolerance to cold, intolerance to heat, unexplained weight gain, unexplained weight loss, others Psychiatric: denies: anxiety, bipolar disorder, depression, hopeless, panic disorder, schizophrenia, sleepless, suicidal, others Physical Exam General Appearance: Severe Distress HEENT: Normal ENT Inspection, Pharynx Normal, TMs Normal Neck: Full Range of Motion, Non-Tender, Normal, Normal Inspection Respiratory: Accessory Muscle Use, Respiratory Distress, Wheezing Cardiovascular: Tachycardia Breast Exam: Deferred Gastrointestinal: No Organomegaly, Non Tender, No Pulsatile Mass, Normal Bowel Sounds, Soft Genitalia: Deferred Pelvic: Deferred Rectal: Deferred Extremities: No calf tenderness, Pedal edema Musculoskeletal : Apperance: Normal Neurologic: Alert, No Motor Deficits, No Sensory Deficits Cerebellar Function: NOT DONE Reflexes: NOT DONE Skin: Normal Color Peripheral Pulses: 3+ Radial (R), 3+ Radial (L) Lymphatic: No Adenopathy Was a procedure done? Was a procedure done?: No EKG EKG : Cardiac Rhythm: ST Differential Dx Considerations may include: COPD exacerbation Electrolyte imbalance X-Ray, Labs, Meds, VS Vital Signs Date Time Temp Pulse Resp B/P (MAP) Pulse Ox O2 Delivery O2 Flow Rate FiO2 10/5/25 03:23 98 Nasal Cannula* 4 36 03/30/25 03:23 16 98 Nasal Cannula* 4 36 03/30/25 03:05 97.9 108 25 145/78 (100) 94 97.9 03/30/25 02:55 108 03/30/25 02:53 97.8 106 32 158/90 98 97.8 Lab Test 03/30/25 04:35 03/30/25 03:25 Range/Units Troponin I High Sensitivity Pending 30 </=54 ng/L White Blood Count 17.9 H 4.4-10.8 10^3/uL Red Blood Count 5.02 4.5-5.90 10^6/uL Hemoglobin 11.8 L 13.5-17.5 g/dL Hematocrit 36.9 L 41.0-53.0 % Mean Corpuscular Volume 73.5 L 80.0-100.0 fL Mean Corpuscular Hemoglobin 23.5 L 28.0-32.0 pg Mean Corpuscular Hemoglobin Concent 31.9 L 32.0-36.0 g/dL Red Cell Distribution Width 18.5 H 11.8-14.3 % Platelet Count 302 140-450 10^3/uL Mean Platelet Volume 8.9 6.9-10.8 fL Neutrophils (%) (Auto) 69.0 37.0-80.0 % Lymphocytes (%) (Auto) 14.9 10.0-50.0 % Monocytes (%) (Auto) 15.6 H 0.0-12.0 % Eosinophils (%) (Auto) 0.2 0.0-7.0 % Basophils (%) (Auto) 0.3 0.0-2.0 % Neutrophils # (Auto) 12.4 H 1.6-8.6 10 ^3/uL Lymphocytes # (Auto) 2.7 0.4-5.4 10 ^3/uL Monocytes # (Auto) 2.8 H 0-1.3 10 ^3/uL Eosinophils # (Auto) 0 0-0.8 10 ^3/uL Basophils # (Auto) 0 0-0.2 10 ^3/uL Nucleated Red Blood Cells 0.5 % Sodium Level 131 L 136-145 mmol/L Potassium Level 4.2 3.5-5.1 mmol/L Chloride Level 93 L 98-107 mmol/L Carbon Dioxide Level 25 20-31 mmol/L Anion Gap 13 5-15 Blood Urea Nitrogen 12 9-23 mg/dL Creatinine 0.99 0.700-1.30 mg/dL Glomerular Filtration Rate Calc 79 >90 mL/min BUN/Creatinine Ratio 12.1 10.0-20.0 Serum Glucose 160 H 74-106 mg/dL Calcium Level 8.4 L 8.7-10.4 mg/dL Current Medications Medications (Trade) Dose Ordered Sig/Nirav Route Start Time Stop Time Status Last Admin Methylprednisolone Sodium Succinate (Solu Medrol) 125 mg ONCE ONCE IV 03/30/25 03:15 03/30/25 03:16 DC 03/30/25 03:15 Magnesium Sulfate/ Dextrose 100 ml @ 100 mls/hr ONCE ONCE IV 03/30/25 03:15 03/30/25 04:14 DC 03/30/25 03:15 Albuterol (Ventolin Medneb) 5 mg ONCE ONCE NEB 03/30/25 03:15 03/30/25 03:16 DC 03/30/25 03:22 Ipratropium [place] (Atrovent Medneb) 0.5 mg ONCE ONCE NEB 03/30/25 03:15 03/30/25 03:16 DC 03/30/25 03:22 [place] [id number] Ph: [phone] DIAGNOSTIC IMAGING Diagnostic Imaging Report : [id number] Signed PATIENT: SHANITA METZ ACCT: [id number] UNIT: [id number] : 1950 LOC: ER ROOM / BED: / AGE / SEX: 75 / M ADM STATUS: REG ER SERVICE [id number] ORDERING PHYSICIAN: MEENU ANDREWS MD PROCEDURE(s): CXRP - CHEST PORTABLE REASON: sob ORDER NUMBER(s): [id number], ACCESSION NUMBER(s): [id number] CHEST RADIOGRAPH Indication: sob Technique: 1 view Comparison: XY CHEST PORTABLE on DOS: 12/18/24, CHEST PORTABLE on DOS: 08/08/22, CXRP on DOS: 08/08/22 FINDINGS: Lines and Tubes: External leads. Lungs/Pleura: More conspicuous right basilar consolidation. Similar left apical consolidation. No evident pleural abnormality. Cardiomediastinum: Unremarkable. Other: No acute osseous abnormality. IMPRESSION: 1. Worsening right basilar and similar left superior airspace disease from prior exam. ATED BY: FAWAD ROSARIO MD DICTATED DATE/TIME: 03/30/25449 SIGNED BY: FAWAD ROSARIO MD SIGNED DATE/TIME: 03/30/25449 CC: Patient alert. Complaining of shortness a breath. Placed on oxygen. Using accessory muscles. Was given steroid. Was given breathing treatment. He is critical. Was given magnesium. Explained to the patient. Continue monitoring. [place] approved inpatient admission [id number]. Time of 1ST Reevaluation: 03:14 Reevaluation 1ST: Unchanged Patient Education/Counseling: Diagnosis, Treatment, Prognosis Family Education/Counseling: No Family Present SEPSIS Sepsis Screen Date sepsis recognized/suspect: Mar 30, 2025 Time Sepsis recognized/suspect: 252 Recent Procedure: No On Antibiotic Therapy: No Respiratory Rate >20: Yes Heart Rate >90: Yes Temp<36 C (96.8 F) or >38.3 C: No SBP <90 or MAP <65 mmHG: No New Acute Mental Status Change: No Is the patient on CPAP, BIPAP,: No Physician Orders Electrocardigram (03/30/25 02:57) Chest Portable (03/30/25 03:02) Urinalysis (03/30/25 03:09) Troponin-I Hs (03/30/25 04:09) Troponin-I Hs (03/30/25 06:09) Vital Signs Date Time Temp Pulse Resp B/P (MAP) Pulse Ox O2 Delivery O2 Flow Rate FiO2 03/30/25 03:23 98 Nasal Cannula* 4 36 03/30/25 03:23 16 98 Nasal Cannula* 4 36 03/30/25 03:05 97.9 108 25 145/78 (100) 94 97.9 03/30/25 02:55 108 03/30/25 02:53 97.8 106 32 158/90 98 97.8 Laboratory Tests Test 03/30/25 03:25 White Blood Count 17.9 10^3/uL (4.4-10.8) H Medications Medications Dose Ordered Sig/Nirav Route Start Time Stop Time Status Last Admin Dose Admin Albuterol 5 mg ONCE ONCE NEB 03/30/25 03:15 03/30/25 03:16 DC 03/30/25 03:22 Ipratropium [place] 0.5 mg ONCE ONCE NEB 03/30/25 03:15 03/30/25 03:16 DC 03/30/25 03:22 Magnesium Sulfate/ Dextrose 100 ml @ 100 mls/hr ONCE ONCE IV 03/30/25 03:15 03/30/25 04:14 DC 03/30/25 03:15 Methylprednisolone Sodium Succinate 125 mg ONCE ONCE IV 03/30/25 03:15 03/30/25 03:16 DC 03/30/25 03:15 Departure 1 Departure Time of Disposition: 03:15 Impression: Primary Impression: Acute respiratory failure Qualified Codes: J96.01 - Acute respiratory failure with hypoxia Additional Impression: COPD exacerbation Disposition: ADMITTED INPATIENT Admit to: Med Surg Condition: Guarded Critical Care Note Critical Care Time?: Yes (90 min-critical care time only) Stability Stability form required: No Heart Score Heart Score: Heart Score Response (Comments) Value History Slightly Suspicious 0 EKG Normal 0 Age >65 2 Risk Factors >3 or Hx ASHD 2 Troponin Normal limit 0 Total 4 I personally scribed for MEENU ANDREWS MD ([email or web address]) on 03/30/25 at 05:02. Electronically submitted by Herbie Barrera ([email or web address]). MEENU ANDREWS MD Mar 30, 2025 03:15
[2025-03-30] MEDS: IPRATROPIUM BROM 0.5 MG/2.5ML INH SOL NEB ONE (03:22)
[2025-03-30] MEDS: ALBUTEROL SULF 2.5 MG/0.5ML(0.5%) NEB SOLN NEB ONE ×2 (03:22→05:53)
[2025-03-30 03:43] LABS: Anion Gap 13 (5-15); Carbon Dioxide 25 mmol/L (20-31); Potassium 4.2 mmol/L (3.5-5.1)
[2025-03-30 03:49] LABS: BUN/Creatinine Ratio 12.1 (10.0-20.0); Blood Urea Nitrogen 12 mg/dL (9-23)
[2025-03-30 04:17] LABS: Calcium 8.4 mg/dL (8.7-10.4); Chloride 93 mmol/L (98-107); Glucose 160 mg/dL (74-106); Sodium 131 mmol/L (136-145)
[2025-03-30 04:19] LABS: Nucleated Red Blood Cells % 0.5 %
[2025-03-30 04:21] LABS: Hematocrit 36.9 % (41.0-53.0); Hemoglobin 11.8 g/dL (13.5-17.5); Mean Corpuscular Hemoglobin 23.5 pg (28.0-32.0); Mean Corpuscular Volume 73.5 fL (80.0-100.0)
--- NOTE | 2025-03-30 04:52 | DVH ---
CHEST RADIOGRAPH Indication: sob Technique: 1 view Comparison: XY CHEST PORTABLE on DOS: 12/18/24, CHEST PORTABLE on DOS: 08/08/22, CXRP on DOS: 08/08/22 FINDINGS: Lines and Tubes: External leads. Lungs/Pleura: More conspicuous right basilar consolidation. Similar left apical consolidation. No e vident pleural abnormality. Cardiomediastinum: Unremarkable. Other: No acute osseous abnormality. IMPRESSION: 1. Worsening right basilar and similar left superior airspace disease from prior exam.
[2025-03-30 07:12] LABS: Urine Protein, UAD TRACE (Negative)
[2025-03-30] MEDS ORDERED: NITROGLYCERIN 0.4 MG SL TAB SL PRN (11:30)
[2025-03-30] MEDS ORDERED: MORPHINE SULFATE INJ 2 MG/ml SYRG IV PRN (11:30)
--- NOTE | 2025-03-30 12:20 | DVH ---
Right lower extremity venous duplex Clinical History: right lower ext swelling Comparison: None Findings: Duplex Doppler evaluation of the deep venous system of the right lower extremity from the common femo ral vein to the popliteal vein including color Doppler and spectral/pulsed waveform analysis was perf ormed. The common femoral vein demonstrates appropriate compressibility and waveform variability. There is compressibility/patency of the great saphenous vein at the proximal thigh. The femoral vein demonstrates appropriate compressibility and waveform variability. The deep femoral vein demonstrates appropriate compressibility and waveform variability. The popliteal vein demonstrates appropriate compressibility and waveform variability. There is normal compressibility at the tibioperoneal trunk. Impression: No right femoropopliteal venous thrombosis. If clinical concern/symptoms persist or worsen, short-interval follow-up study is suggested.
[2025-03-30] MEDS: IOHEXOL 350 MG/ML 100ML IJ ONE (12:42)
[2025-03-30] MEDS: IPRATROPIUM BROM 0.5 MG/2.5ML INH SOL NEB SCH (13:21)
[2025-03-30] MEDS: LEVALBUTEROL HCL 1.25 MG/3 ML NEB NEB SCH (13:21)
--- NOTE | 2025-03-30 13:49 | DVH ---
Procedure: CT CT ANGIO CHEST CONTRAST Study Date and Requested Time: 10/2024 12:36 PM History: sudden onsetSOB, tachy, wells sc>4, h/o COPD, PE Comparison: None Dose: CTDI: 26.64 mGy DLP: 2.89 mGycm Technique: Multiplanar images of the chest are obtained with contrast. 3-D image postprocessing was p erformed and images were used for interpretation and reporting. Findings: The thyroid gland is unremarkable. Motion artifact limits evaluation of the pulmonary arteries. With no pulmonary embolism noted central ly. Can not exclude pulmonary embolism within the segmental and subsegmental pulmonary arteries. No evidence of aortic aneurysm or dissection. Atherosclerotic calcification of the aorta. [id number] cardiomegaly with small pericardial effusion No pneumothorax or pleural effusion. Mild emphysematous changes. Left apical opacity which may repre sent scarring appears present on chest radiograph dating back to 08/08/2022 Heart within normal limits. No significant mediastinal or hilar adenopathy. Bilateral Lateral Upper abdominal Subcutaneous fat edema. Bilateral renal cysts. Mild wall thickening of the distal esophagus. Mild wall thickening of the sto mach. Moderate to large amount of fecal material within the partially visualized colon. Impression: Motion artifact limits evaluation of the pulmonary arteries with no pulmonary embolism noted centrall y. Can not completely exclude pulmonary embolism within the segmental and subsegmental pulmonary art eries. Redemonstration of left apical scarring. Mild emphysematous changes. [id number] cardiomegaly with small pericardial effusion. Reflux of contrast into the IVC and he patic veins suggestive of right heart dysfunction. Mild esophagitis with mild gastritis.
[2025-03-30 14:22] LABS: COVID19 ANTIGEN SOFIA FIA NEGATIVE (NEGATIVE)
[2025-03-30 14:23] LABS: Amphetamine Screen, Urine Neg (NEGATIVE)
[2025-03-30] MEDS: ENOXAPARIN SOD 100 MG/1 ML SYRINGE SC ONE (14:25)
[2025-03-30] MEDS: AZITHROMYCIN 500MG/ 250ML 250 ML IV ONE (14:25)
[2025-03-30 14:29] LABS: Barbiturate Scree,Urine Neg (NEGATIVE); Benzodiazephine Screen, Urine Neg (NEGATIVE); Cannabinoid Screen, Urine Pos (NEGATIVE); Cocaine Screen, Urine Neg (NEGATIVE); Opiate Scree,Urine Pos (NEGATIVE); Phencyclidine Screen, Urine Neg (NEGATIVE)
--- NOTE | 2025-03-30 17:47 | DVHHPRES ---
History of Present Illness Resident Creating Document: ESTEBAN BRAVO RESIDENT History of Present Illness Patient is a 75-year-old male with a medical history of hypertension, COPD on 4 L oxygen at home, ? CHF, lung cancer status post resection on the left side presented to the ED with a sudden onset of shortness of the breath that happened last night. Patient reported that he was apparently well until yesterday and was in his normal state of health when slept. He woke up with sudden onset shortness of breath, denied any chest pain following which she called the EMS and was brought to the ER for further evaluation. On arrival to the ER patient was slightly hypotensive with a SBP in 160s and hypoxic and was put on oxygen at 6 L/min. Patient reported that he has had right leg swelling with the last 2 days. He denied any recent malignancy, immobilization, hemoptysis. Patient denied fever, chills, cough or phlegm. Past medical history: As per HPI Past surgical history: Left lung surgery for lung cancer in 2013 Social history: Patient denies current smoking, alcohol, drug use and lives with family Home medications: Amlodipine, atorvastatin, allopurinol, alendronate, crizotinib, Lasix, venlafaxine Review of Systems Review of Systems Patient seen and examined at the bedside Was seen to be on 5L oxygen and denied any shortness of breath No chest pain, abdominal pain, fever, chills, nausea, vomiting Allergies: Coded Allergies: NO KNOWN ALLERGIES (Unverified , 08/08/22) Medications Current Medications Medications Dose Ordered Sig/Nirav Route Start Time Stop Time Status Last Admin Dose Admin Nitroglycerin 0.4 mg Q5MINP PRN SL 03/30/25 11:30 Morphine Sulfate 2 mg Q30M PRN IV 03/30/25 11:30 Levalbuterol HCl 0.625 mg Q6HR NEB 03/30/25 12:00 03/30/25 13:21 0.625 MG Ipratropium [place] 0.5 mg Q6HR NEB 03/30/25 12:00 03/30/25 13:21 0.5 MG Azithromycin 250 ml @ 125 mls/hr DAILY IV 03/31/25 10:00 Ceftriaxone Sodium 50 ml @ 100 mls/hr DAILY@09 IV 03/31/25 09:00 Methylprednisolone Sodium Succinate 40 mg BID IV 03/30/25 22:00 Enoxaparin Sodium 70 mg Q12HR SC 03/30/25 22:00 Exam Vital Signs Vital Signs Date Time Temp Pulse Resp B/P (MAP) Pulse Ox O2 Delivery O2 Flow Rate FiO2 03/30/25 15:20 101 18 137/82 (100) 96 03/30/25 13:48 36 03/30/25 13:21 Nasal Cannula 4.0 03/30/25 07:20 98.8 98.8 Exam Gen - no pallor, no icterus, no peripheral edema . Skin - Patients skin is warm and dry. HEENT - normocephalic, atraumatic, moist mucous membranes. Neck - full ROM, no LAD, mildly elevated JVP Pulmonary - B/L equal breath sounds with the expiratory wheezing but no crackles, no stridor. cardiovascular - regular S1,S2 heard, no added sounds, no murmurs heard. peripheral pulses normal radial 2+, pedal 2+. capillary refill normal <2 secs. GI - soft, nontender abdomen. no hepatospleenomegaly. Bowel sounds normoactive Neurological - Patient is A/O X 3 . Bilateral upper extremity strength 5/5, bilateral lower extremity strength 5/5, no facial droop, normal speech, no tremor, no sensory deficiets. Labs/Xrays Labs Test 03/30/25 13:16 03/30/25 11:54 03/30/25 06:48 03/30/25 03:25 Range/Units Influenza Type A Antigen Negative Negative Influenza Type B Antigen Negative Negative SARS-CoV-2 Antigen (Rapid) Negative NEGATIVE Troponin I High Sensitivity 38 </=54 ng/L Urine Color Yellow Yellow Urine Clarity Clear Clear Urine pH 6.5 5.0-9.0 Urine Specific [place] 1.010 1.001-1.035 Urine Protein Trace H Negative Urine Ketones Negative Negative Urine Blood Negative Negative /uL Urine Nitrite Negative Negative Urine Bilirubin Negative Negative Urine Urobilinogen Normal Negative mg/dL Urine Leukocyte Esterase Negative Negative /uL Urine RBC <1 0 - 3 /hpf Urine Microscopic WBC < 1 0-3 /HPF Urine Squamous Epithelial Cells None seen <5 /hpf Urine Bacteria None seen None Seen /hpf Urine Glucose Normal Normal mg/dL Urine Opiates Screen Pos NEGATIVE Urine Fentanyl Screen Neg NEGATIVE Urine Barbiturates Screen Neg NEGATIVE Urine Phencyclidine Screen Neg NEGATIVE Urine Amphetamines Screen Neg NEGATIVE Urine Benzodiazepines Screen Neg NEGATIVE Urine Cocaine Screen Neg NEGATIVE Urine Cannabinoids Screen Pos NEGATIVE White Blood Count 17.9 H 4.4-10.8 10^3/uL Red Blood Count 5.02 4.5-5.90 10^6/uL Hemoglobin 11.8 L 13.5-17.5 g/dL Hematocrit 36.9 L 41.0-53.0 % Mean Corpuscular Volume 73.5 L 80.0-100.0 fL Mean Corpuscular Hemoglobin 23.5 L 28.0-32.0 pg Mean Corpuscular Hemoglobin Concent 31.9 L 32.0-36.0 g/dL Red Cell Distribution Width 18.5 H 11.8-14.3 % Platelet Count 302 140-450 10^3/uL Mean Platelet Volume 8.9 6.9-10.8 fL Neutrophils (%) (Auto) 69.0 37.0-80.0 % Lymphocytes (%) (Auto) 14.9 10.0-50.0 % Monocytes (%) (Auto) 15.6 H 0.0-12.0 % Eosinophils (%) (Auto) 0.2 0.0-7.0 % Basophils (%) (Auto) 0.3 0.0-2.0 % Neutrophils # (Auto) 12.4 H 1.6-8.6 10 ^3/uL Lymphocytes # (Auto) 2.7 0.4-5.4 10 ^3/uL Monocytes # (Auto) 2.8 H 0-1.3 10 ^3/uL Eosinophils # (Auto) 0 0-0.8 10 ^3/uL Basophils # (Auto) 0 0-0.2 10 ^3/uL Nucleated Red Blood Cells 0.5 % Sodium Level 131 L 136-145 mmol/L Potassium Level 4.2 3.5-5.1 mmol/L Chloride Level 93 L 98-107 mmol/L Carbon Dioxide Level 25 20-31 mmol/L Anion Gap 13 5-15 Blood Urea Nitrogen 12 9-23 mg/dL Creatinine 0.99 0.700-1.30 mg/dL Glomerular Filtration Rate Calc 79 >90 mL/min BUN/Creatinine Ratio 12.1 10.0-20.0 Serum Glucose 160 H 74-106 mg/dL Calcium Level 8.4 L 8.7-10.4 mg/dL B-Type Natriuretic Peptide 345.24 0-100 pg/mL SEPSIS Sepsis Screen Date sepsis recognized/suspect: Mar 30, 2025 Time Sepsis recognized/suspect: 719 Recent Procedure: No On Antibiotic Therapy: No Respiratory Rate >20: No Heart Rate >90: Yes Temp<36 C (96.8 F) or >38.3 C: No SBP <90 or MAP <65 mmHG: No New Acute Mental Status Change: No Is the patient on CPAP, BIPAP,: No Physician Orders Admit (03/30/25 11:16) Nitroglycerin Sublingual (Ntrostat Subli (03/30/25 11:30) Morphine Sulfate Injection (03/30/25 11:30) Oxygen By Nasal Cannula (03/30/25 11:16) Stat Ekg For Chest Pain (03/30/25 11:16) Notify Md Of Changes From Base (03/30/25 11:16) Staff Mechanical Engineer For 24 Hours (03/30/25 11:16) Emergency Dysrhythmia Protocol (03/30/25 11:16) Rhythm Strips Once Every Shift (03/30/25 11:16) Ct Angio Chest Contrast (03/30/25 11:16) Rt Lower Dvt (03/30/25 11:16) Mrsa Screen (03/30/25 11:16) Levalbuterol Hcl (Xopenex Medneb) (03/30/25 12:00) Ipratropium Medneb (Atrovent Medneb) (03/30/25 12:00) Azithromycin 500mg/ 250ml (Zithromax 50 (03/31/25 10:00) Ceftriaxone 1gm/50ml (Rocephin) (03/31/25 09:00) Methylprednisolone Sod Succ (Solu Medrol (03/30/25 22:00) Cardiac Diet-2gna,Lofat,Lochol (03/30/25 Dinner) Respiratory Culture W/ Gs (03/30/25 14:08) Enoxaparin Sodium (Lovenox) (03/30/25 22:00) Complete Blood Count (03/31/25 04:00) Basic Metabolic Panel (03/31/25 04:00) Magnesium (03/31/25 04:00) Vital Signs Date Time Temp Pulse Resp B/P (MAP) Pulse Ox O2 Delivery O2 Flow Rate FiO2 03/30/25 15:20 101 18 137/82 (100) 96 03/30/25 13:48 100 17 100 36 03/30/25 13:28 100 17 100 03/30/25 13:21 92 Nasal Cannula 4.0 03/30/25 13:21 102 13 92 03/30/25 13:21 92 Nasal Cannula* 4 36 03/30/25 13:20 101 18 158/84 (108) 96 03/30/25 11:20 105 18 147/86 (106) 95 Medications Medications Dose Ordered Sig/Nirav Route Start Time Stop Time Status Last Admin Dose Admin Azithromycin 250 ml @ 125 mls/hr ONCE ONCE IV 03/30/25 11:30 03/30/25 13:29 DC 03/30/25 14:25 125 MLS/HR Ceftriaxone Sodium 50 ml @ 100 mls/hr ONCE ONCE IV 03/30/25 11:30 03/30/25 11:59 DC 03/30/25 12:14 100 MLS/HR Enoxaparin Sodium 70 mg ONCE ONCE SC 03/30/25 14:15 03/30/25 14:19 DC 03/30/25 14:25 70 MG Ipratropium [place] 0.5 mg Q6HR NEB 03/30/25 12:00 03/30/25 13:21 0.5 MG Levalbuterol HCl 0.625 mg Q6HR NEB 03/30/25 12:00 03/30/25 13:21 0.625 MG Assessment/Plan Assessment/Plan Acute on chronic hypoxic respiratory failure Subsegmental Pulmonary embolism, not completely excluded COPD likely in exacerbation Emphysema Probable pulmonary hypertension Pneumonia likely due to Gram +/- bacteria - CT angio chest showed no pulmonary embolism noted centrally. Can not com pletely exclude pulmonary embolism within the segmental and subsegmental pulmonary arteries. - ECG showed right ventricular hypertrophy - IV steroids - scheduled to nebs - antibiotics ceftriaxone and azithromycin - enoxaparin therapeutic dose - we will likely repeat NM VQ scan to rule out pulmonary embolism PUD prophylaxis: Protonix DVT prophylaxis with the therapeutic Lovenox Goals of care discussed with the patient and the family for over 26 minutes. Full code Time spent: 43 minutes Plan discussed with Dr. Sweet Plan discussed with: Patient My Orders Orders - ESTEBAN BRAVO RESIDENT Procedure Category Date Status Time Admit ADMIT 03/30/25 Transmitted 11:16 Nitroglycerin PHA 03/30/25 In Process Sublingual (Ntrostat 11:30 Morphine Sulfate PHA 03/30/25 In Process Injection 11:30 Oxygen By Nasal RT 03/30/25 Transmitted Cannula 11:16 Stat Ekg For Chest TJ 03/30/25 In Process Pain 11:16 Notify Md Of Changes TJ 03/30/25 In Process From Base 11:16 Staff Mechanical Engineer For TJ 03/30/25 In Process 24 Hours 11:16 Emergency Dysrhythmia TJ 03/30/25 In Process Protocol 11:16 Rhythm Strips Once TJ 03/30/25 In Process Every Shift 11:[address] 03/30/25 Resulted Contrast 11:16 Rt Lower Dvt US 03/30/25 Resulted 11:16 Mrsa Screen YUNG 03/30/25 In Process 11:16 Levalbuterol Hcl PHA 03/30/25 In Process (Xopenex Medneb) 12:00 Ipratropium Medneb PHA 03/30/25 In Process (Atrovent Medneb) 12:00 Azithromycin 500mg/ PHA 03/31/25 In Process 250ml (Zithromax 50 10:00 Ceftriaxone 1gm/50ml PHA 03/31/25 In Process (Rocephin) 09:00 Methylprednisolone PHA 03/30/25 In Process Sod Succ (Solu Medrol 22:00 Cardiac DIET 03/30/25 Transmitted Diet-2gna,Lofat,Lochol Dinner Respiratory Culture YUNG 03/30/25 Uncollected W/ Gs 14:08 Enoxaparin Sodium PHA 03/30/25 In Process (Lovenox) 22:00 Complete Blood Count LAB 03/31/25 Verified 04:00 Basic Metabolic Panel LAB 03/31/25 Verified 04:00 Magnesium LAB 03/31/25 Verified 04:00 Date of Service: Mar 30, 2025 Billing Provider: LOBO SWEET MD Common Visit Codes: [id number] INP/OBS CARE (HIGH) Secondary Visit Codes: [id number] CARE PLAN 30 MINUTES ESTEBAN BRAVO RESIDENT Mar 30, 2025 17:47 LOBO SWEET MD Apr 03, 2025 19:20
[2025-03-30] MEDS: methylPREDNISolone SOD SUCC 40 MG/ML VL IV SCH (21:19)
[2025-03-30] MEDS: ENOXAPARIN SOD 100 MG/1 ML SYRINGE SC SCH (21:20)
[2025-03-30] MEDS: HYDROcodone-ACET 5/325MG TAB PO PRN (23:13)
[2025-03-30] MEDS: DOCUSATE SOD 100 MG CAP PO PRN (23:14)
[2025-03-31] VITALS (17 sets, daily range): BP systolic 137–163; BP diastolic 85–101; PULSE 85–109; RESP 18–24; TEMP 97.2–99.1; O2SAT 90–100
[2025-03-31] MEDS: LOSARTAN POTASSIUM 25 MG TAB PO ONE (01:02)
[2025-03-31] MEDS: LACTULOSE 20Gm/30ML SOLN PO ONE (01:03)
[2025-03-31] MEDS ORDERED: NAPR-1335 PO (01:33)
[2025-03-31] MEDS ORDERED: PRED20TA2 PO (01:48)
[2025-03-31] MEDS ORDERED: MEGE20TA4 PO (01:48)
[2025-03-31] MEDS ORDERED: HYDR-4798 PO (01:48)
[2025-03-31] MEDS: NAPROXEN 500 MG TAB PO PRN (01:52)
[2025-03-31 05:02] LABS: Hemoglobin 11.6 g/dL (13.5-17.5)
[2025-03-31 05:04] LABS: Hematocrit 35.7 % (41.0-53.0); Mean Corpuscular Hemoglobin 23.3 pg (28.0-32.0); Mean Corpuscular Volume 71.8 fL (80.0-100.0); Nucleated Red Blood Cells % 0.5 %
[2025-03-31 05:10] LABS: Potassium 3.7 mmol/L (3.5-5.1)
[2025-03-31 05:11] LABS: Anion Gap 11 (5-15); Carbon Dioxide 28 mmol/L (20-31)
[2025-03-31 05:12] LABS: Calcium 8.2 mg/dL (8.7-10.4); Chloride 95 mmol/L (98-107); Sodium 134 mmol/L (136-145)
[2025-03-31 05:16] LABS: BUN/Creatinine Ratio 13.3 (10.0-20.0); Blood Urea Nitrogen 10 mg/dL (9-23); Magnesium 2.4 mg/dL (1.6-2.6)
[2025-03-31 05:18] LABS: Glucose 136 mg/dL (74-106)
[2025-03-31] MEDS: POTASSIUM EFFERVESENT TAB 25 MEQ PO ONE (09:37)
[2025-03-31] MEDS: PANTOPRAZOLE 40 MG TAB PO ONE (09:38)
[2025-03-31] MEDS: LACTULOSE 20Gm/30ML SOLN PO SCH (09:38)
[2025-03-31] MEDS: LOSARTAN POTASSIUM 50 MG TAB PO SCH (09:38)
[2025-03-31] MEDS: ENOXAPARIN SOD 80 MG/0.8ML SYRINGE SC SCH (09:46)
--- NOTE | 2025-03-31 10:03 | ECG ---
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
[2025-03-31] MEDS: AZITHROMYCIN 500MG/ 250ML 250 ML IV SCH (11:02)
[2025-03-31 11:33] LABS: Albumin 3.9 g/dL (3.2-4.8); Bilirubin, Direct 0.2 mg/dL (<0.3); Bilirubin, Total 0.4 mg/dL (0.2-1.0); Total Protein 5.9 g/dL (5.7-8.2)
[2025-03-31 11:36] LABS: Alanine Aminotransferase 66.0 U/L (7-40); Alkaline Phosphatase 166.0 U/L (46-116)
[2025-03-31] MEDS: HYDROcodone-ACET 5/325MG TAB PO PRN (13:31)
--- NOTE | 2025-03-31 14:16 | DVHPNRES ---
Progress Note Date Seen: Mar 31, 2025 Resident Creating Document: FEDERICO THAO Medical Necessity Reason Pt with a Central, PICC or Fol: No Subjective Review of Systems Patient is a 75-year-old male with past medical history of hypertension, COPD on 4 L of oxygen at home, possible congestive heart failure (CHF), and lung cancer status post left-sided resection, presented to [facility] ED with complaint of sudden onset of shortness of breath that began last night. The patient reported that he was in his usual state of health until yesterday and went to sleep feeling well. He awoke with sudden shortness of breath and denied any chest pain. He subsequently called EMS and was brought to the ER for further evaluation. On arrival, the patient was slightly hypertensive with a systolic blood pressure in the 160s and was hypoxic, requiring oxygen at 6 L/min. He also reported right leg swelling over the past two days. He denied any recent malignancy, immobilization, or hemoptysis. Additionally, he denied fever, chills, cough, or sputum production. Vital signs included BP 162/94, HR 99, Temp 97.7F, RR 18, and O2 saturation 98% on 4L nasal cannula. Continuous pulse oximetry and humidifier were initiated. Patient unable to transfer to [place]. Past surgical history: Left lung surgery for lung cancer in 2013 Home medications: Amlodipine, atorvastatin, allopurinol, alendronate, crizotinib, Lasix, venlafaxine Past Hospitalization: none Social & Personal history: Patient denies current smoking, alcohol, drug use and lives with family Allergies: none Patient seen and examined at bedside. Patient is alert and oriented to time, place person and responding to all questions. Eyes: No Pain, No Vision change, No Conjunctivae inflammation, No Eyelid inflammation, No Other, No Redness ENT: No Ear pain, No Ear discharge, No Nose pain, No Nose discharge, No Nose congestion, No Mouth pain, No Mouth swelling, No Throat pain, No Throat swelling, No Other Cardiovascular: No Chest Pain, No Palpitations, No Orthopnea, No Paroxysmal No Dyspnea, No Edema, No Lt Headedness, No Other Respiratory: No Cough, No Dry, Shortness of breath, SOB with exertion, No Wheezing, No Hemoptysis, No Pleuritic Pain, No Sputum, No Other Gastrointestinal: No Nausea, No Vomiting, No Abdominal Pain, No Diarrhea, No Constipation, No Melena, No Hematochezia, No Other Genitourinary: No Dysuria, No Frequency, No Incontinence, No Hematuria, No Retention, No Other Musculoskeletal: No other, No neck pain, No shoulder pain, No arm pain, No back pain, No hand pain, No leg pain, No foot pain Skin: No Rash, No Lesions, No Jaundice, No Bruising, No Other Objective vital signs Vital Sign Date Time Temp Pulse Resp B/P (MAP) Pulse Ox O2 Delivery O2 Flow Rate FiO2 03/31/25 13:00 97.5 94 20 137/101 (113) 96 97.5 03/31/25 11:42 Nasal Cannula 4.0 03/31/25 11:42 36 Total Intake and Output 03/30/25 03/30/25 03/31/25 15:00 23:00 07:00 Intake Total 50 ml 250 ml 500 ml Balance 50 ml 250 ml 500 ml medications Current Medications Medications Dose Ordered Sig/Nirav Route Start Time Stop Time Status Last Admin Dose Admin Nitroglycerin 0.4 mg Q5MINP PRN SL 03/30/25 11:30 Morphine Sulfate 2 mg Q30M PRN IV 03/30/25 11:30 Levalbuterol HCl 0.625 mg Q6HR NEB 03/30/25 12:00 03/31/25 11:42 0.625 MG Ipratropium [place] 0.5 mg Q6HR NEB 03/30/25 12:00 03/31/25 11:42 0.5 MG Azithromycin 250 ml @ 125 mls/hr DAILY IV 03/31/25 10:00 03/31/25 11:02 125 MLS/HR Ceftriaxone Sodium 50 ml @ 100 mls/hr DAILY@09 IV 03/31/25 09:00 03/31/25 10:05 100 MLS/HR Methylprednisolone Sodium Succinate 40 mg BID IV 03/30/25 22:00 03/31/25 09:39 40 MG Docusate Sodium 100 mg BIDPRN PRN PO 03/30/25 23:00 03/30/25 23:14 100 MG Aspirin 81 mg DAILY PO 03/31/25 10:00 03/31/25 09:38 81 MG Losartan Potassium 50 mg DAILY PO 03/31/25 10:00 03/31/25 09:38 50 MG Lactulose 30 ml DAILY PO 03/31/25 10:00 03/31/25 09:38 30 ML Naproxen 250 mg Q8HP PRN PO 03/31/25 01:45 03/31/25 01:52 250 MG Acetaminophen/ Hydrocodone Bitart 1 tab Q6HPRN PRN PO 03/31/25 01:45 03/31/25 13:31 1 TAB Pantoprazole Sodium 40 mg DAILY@0600 PO 04/01/25 06:00 Enoxaparin Sodium 70 mg Q12HR SC 03/31/25 10:00 03/31/25 09:46 70 MG Examination Gen - no pallor, no icterus, no peripheral edema . Skin - Patients skin is warm and dry. HEENT - normocephalic, atraumatic, moist mucous membranes. Neck - full ROM, no LAD, mildly elevated JVP Pulmonary - B/L equal breath sounds with the expiratory wheezing but no crackles, no stridor. cardiovascular - regular S1,S2 heard, no added sounds, no murmurs heard. peripheral pulses normal radial 2+, pedal 2+. capillary refill normal <2 secs. GI - soft, nontender abdomen. no hepatospleenomegaly. Bowel sounds normoactive Neurological - Patient is A/O X 3 . Bilateral upper extremity strength 5/5, bilateral lower extremity strength 5/5, no facial droop, normal speech, no tremor, no sensory deficiets. laboratory and microbiology Laboratory Tests 03/31/25 04:28 Test 03/31/25 04:28 Range/Units Serum Glucose 136 H 74-106 mg/dL Labs and/or images reviewed: Labs reviewed by me, Image(s) reviewed by me Problem List/Assessment/Plan Problem List/Assessment/Plan Acute on chronic hypoxic respiratory failure Subsegmental Pulmonary embolism, not completely excluded COPD likely in exacerbation Emphysema Probable pulmonary hypertension Pneumonia likely due to Gram +/- bacteria - Chest X-Ray shows worsening right basilar and similar left superior airspace disease from prior exam. - CT angio chest showed no pulmonary embolism noted centrally. Can not completely exclude pulmonary embolism within the segmental and subsegmental pulmonary arteries. - ECG showed right ventricular hypertrophy - NM V/Q scan pending - IV steroids - scheduled to nebs - antibiotics ceftriaxone and azithromycin - enoxaparin therapeutic dose Ruled out DVT - Extremity Venous Study shows no right femoropopliteal venous thrombosis. PUD prophylaxis: Protonix DVT prophylaxis with the therapeutic Lovenox Goals of care: Full code, discussed for >16 minutes on 03/31/25 Plan discussed with patient Plan discussed with Dr. Sweet Plan discussed with: Patient My Orders My Orders Orders - FEDERICO THAO Procedure Category Date Status Time Nm Vq Scan NM 03/31/25 Logged 12:39 Date of Service: Mar 31, 2025 Billing Provider: LOBO SWEET MD Common Visit Codes: [id number] INP/OBS CARE(HIGH) FEDERICO THAO Mar 31, 2025 14:16 LOBO SWEET MD Apr 03, 2025 19:20
[2025-04-01] VITALS (18 sets, daily range): BP systolic 138–153; BP diastolic 89–98; PULSE 78–108; RESP 14–20; TEMP 97.7–98.5; O2SAT 91–100
[2025-04-01] MEDS: PANTOPRAZOLE 40 MG TAB PO SCH (06:00)
[2025-04-01 06:50] LABS: Hematocrit 38.0 % (41.0-53.0); Nucleated Red Blood Cells % 0.6 %
[2025-04-01 06:58] LABS: Potassium 4.9 mmol/L (3.5-5.1); Sodium 136 mmol/L (136-145)
[2025-04-01 06:59] LABS: Anion Gap 9 (5-15); Carbon Dioxide 30 mmol/L (20-31)
[2025-04-01 07:01] LABS: Calcium 7.9 mg/dL (8.7-10.4); Chloride 97 mmol/L (98-107)
[2025-04-01 07:04] LABS: Blood Urea Nitrogen 11 mg/dL (9-23)
[2025-04-01 07:05] LABS: BUN/Creatinine Ratio 13.8 (10.0-20.0); Glucose 146 mg/dL (74-106)
[2025-04-01 07:06] LABS: Hemoglobin 11.8 g/dL (13.5-17.5); Mean Corpuscular Hemoglobin 23.1 pg (28.0-32.0); Mean Corpuscular Volume 74.6 fL (80.0-100.0)
[2025-04-01] MEDS: LORazepam 2MG/ML-1ML VIAL IV PRN (13:58)
--- NOTE | 2025-04-01 14:48 | DVH ---
NUCLEAR MEDICINE VENTILATION/PERFUSION LUNG SCAN. INDICATION: PULMONARY EMBOLISM TECHNIQUE: Following intravenous demonstration of 6 millicuries of technetium 99m MAA, and inhalati on of 4.8 mCi of Xe-133 scintigrams were obtained in multiple projections of the lungs. FINDINGS: There is normal uptake of radionuclide on both the ventilation and perfusion portions of the examinat ion. No mismatched perfusion defects are demonstrated. Uptake is normally homogeneous. IMPRESSION: Low probability for PE.
--- NOTE | 2025-04-01 18:37 | DVHDSRES ---
Discharge Summary Date of Admission Resident Creating Document: FEEDRICO THAO RESIDENT Mar 30, 2025 at 11:16 Date of Discharge: Apr 01, 2025 Admitting Diagnosis Shortness of breath Labs/Diagnostic Data: Laboratory Results Test 04/01/25 05:10 03/31/25 04:28 03/30/25 13:16 03/30/25 11:54 White Blood Count 14.4 10^3/uL (4.4-10.8) Red Blood Count 5.09 10^6/uL (4.5-5.90) Hemoglobin 11.8 g/dL (13.5-17.5) Hematocrit 38.0 % (41.0-53.0) Mean Corpuscular Volume 74.6 fL (80.0-100.0) Mean Corpuscular Hemoglobin 23.1 pg (28.0-32.0) Mean Corpuscular Hemoglobin Concent 31.0 g/dL (32.0-36.0) Red Cell Distribution Width 18.9 % (11.8-14.3) Platelet Count 268 10^3/uL (140-450) Mean Platelet Volume 8.5 fL (6.9-10.8) Neutrophils (%) (Auto) 83.4 % (37.0-80.0) Lymphocytes (%) (Auto) 5.1 % (10.0-50.0) Monocytes (%) (Auto) 11.3 % (0.0-12.0) Eosinophils (%) (Auto) 0.0 % (0.0-7.0) Basophils (%) (Auto) 0.2 % (0.0-2.0) Neutrophils # (Auto) 12.0 10 ^3/uL (1.6-8.6) Lymphocytes # (Auto) 0.7 10 ^3/uL (0.4-5.4) Monocytes # (Auto) 1.6 10 ^3/uL (0-1.3) Eosinophils # (Auto) 0 10 ^3/uL (0-0.8) Basophils # (Auto) 0 10 ^3/uL (0-0.2) Nucleated Red Blood Cells 0.6 % Sodium Level 136 mmol/L (136-145) Potassium Level 4.9 mmol/L (3.5-5.1) Chloride Level 97 mmol/L (98-107) Carbon Dioxide Level 30 mmol/L (20-31) Anion Gap 9 (5-15) Blood Urea Nitrogen 11 mg/dL (9-23) Creatinine 0.80 mg/dL (0.700-1.30) Glomerular Filtration Rate Calc 92 mL/min (>90) BUN/Creatinine Ratio 13.8 (10.0-20.0) Serum Glucose 146 mg/dL (74-106) Calcium Level 7.9 mg/dL (8.7-10.4) Magnesium Level 2.4 mg/dL (1.6-2.6) Total Bilirubin 0.4 mg/dL (0.2-1.0) Direct Bilirubin 0.2 mg/dL (<0.3) Aspartate Amino Transferase (AST) 46 U/L (13-40) Alanine Aminotransferase (ALT) 66 U/L (7-40) Alkaline Phosphatase 166 U/L (46-116) Total Protein 5.9 g/dL (5.7-8.2) Albumin 3.9 g/dL (3.2-4.8) Influenza Type A Antigen Negative (Negative) Influenza Type B Antigen Negative (Negative) SARS-CoV-2 Antigen (Rapid) Negative (NEGATIVE) Troponin I High Sensitivity 38 ng/L (</=54) Test 03/30/25 06:48 03/30/25 03:25 Urine Color Yellow (Yellow) Urine Clarity Clear (Clear) Urine pH 6.5 (5.0-9.0) Urine Specific [place] 1.010 (1.001-1.035) Urine Protein Trace (Negative) Urine Ketones Negative (Negative) Urine Blood Negative /uL (Negative) Urine Nitrite Negative (Negative) Urine Bilirubin Negative (Negative) Urine Urobilinogen Normal mg/dL (Negative) Urine Leukocyte Esterase Negative /uL (Negative) Urine RBC <1 /hpf (0 - 3) Urine Microscopic WBC < 1 /HPF (0-3) Urine Squamous Epithelial Cells None seen /hpf (<5) Urine Bacteria None seen /hpf (None Seen) Urine Glucose Normal mg/dL (Normal) Urine Opiates Screen Pos (NEGATIVE) Urine Fentanyl Screen Neg (NEGATIVE) Urine Barbiturates Screen Neg (NEGATIVE) Urine Phencyclidine Screen Neg (NEGATIVE) Urine Amphetamines Screen Neg (NEGATIVE) Urine Benzodiazepines Screen Neg (NEGATIVE) Urine Cocaine Screen Neg (NEGATIVE) Urine Cannabinoids Screen Pos (NEGATIVE) B-Type Natriuretic Peptide 345.24 pg/mL (0-100) Other Laboratory Tests 04/01/25 05:10 Brief Hx & Hospital Course: Shanita Avalos is a 75-year-old male with a medical history of hypertension, COPD on 4 L oxygen at home, possible congestive heart failure, and status post left lung resection for lung cancer in 2013, who presented to the Emergency Department with sudden onset shortness of breath that began overnight. He reported feeling well the previous day and awoke with acute dyspnea, prompting EMS activation. On arrival, he was hypoxic and slightly hypotensive, requiring 6 L/min oxygen. He also reported right leg swelling for the past two days but denied chest pain, fever, chills, cough, hemoptysis, or recent immobilization. Physical exam revealed mild distress, expiratory wheezing, mildly elevated JVP, and no peripheral edema. Initial workup included a CT angiogram of the chest, which showed no central pulmonary embolism but could not exclude segmental or subsegmental PE due to motion artifact. Chest X-ray revealed worsening right basilar consolidation and persistent left apical scarring. EKG showed sinus tachycardia, right atrial enlargement, right ventricular hypertrophy, and minimal ST elevation in lateral leads. Given the concern for PE, a V/Q scan was ordered and later showed normal ventilation and perfusion with no mismatched defects, indicating low probability for PE. A right lower extremity venous duplex ultrasound showed no femoropopliteal DVT. The patient was treated for acute on chronic hypoxic respiratory failure, likely due to COPD exacerbation and possible pneumonia. He received IV steroids, nebulizer treatments, therapeutic enoxaparin, and antibiotics including ceftriaxone and azithromycin. He remained on 4 L oxygen via nasal cannula with stable oxygen saturation and tolerated respiratory treatments well. director of cardiopulmonary services coordinated transfer to [place], with clinical documents faxed and transfer pending bed availability. The patient remained alert and stable throughout hospitalization, and all care plans and procedures were explained to him and his family. Examination Gen - no pallor, no icterus, no peripheral edema . Skin - Patients skin is warm and dry. HEENT - normocephalic, atraumatic, moist mucous membranes. Neck - full ROM, no LAD, mildly elevated JVP Pulmonary - B/L equal breath sounds with the expiratory wheezing but no crackles, no stridor. cardiovascular - regular S1,S2 heard, no added sounds, no murmurs heard. peripheral pulses normal radial 2+, pedal 2+. capillary refill normal <2 secs. GI - soft, nontender abdomen. no hepatospleenomegaly. Bowel sounds normoactive Neurological - Patient is A/O X 3 . Bilateral upper extremity strength 5/5, bilateral lower extremity strength 5/5, no facial droop, normal speech, no tremor, no sensory deficiets. Operations or Procedures PATIENT: SHANITA AVALOS ACCT: [id number] UNIT: [id number] : 1950 LOC: [facility] ROOM / BED: 0289T / A AGE / SEX: 75 / M ADM STATUS: ADM IN SERVICE 1400 ORDERING PHYSICIAN: FEDERICO THAO PROCEDURE(s): VQ - NM VQ SCAN REASON: PULMONARY EMBOLISM ORDER NUMBER(s): [id number], ACCESSION NUMBER(s): [id number] NUCLEAR MEDICINE VENTILATION/PERFUSION LUNG SCAN. INDICATION: PULMONARY EMBOLISM TECHNIQUE: Following intravenous demonstration of 6 millicuries of technetium 99m MAA, and inhalation of 4.8 mCi of Xe-133 scintigrams were obtained in multiple projections of the lungs. FINDINGS: There is normal uptake of radionuclide on both the ventilation and perfusion portions of the examination. No mismatched perfusion defects are demonstrated. Uptake is normally homogeneous. IMPRESSION: Low probability for PE. - PATIENT: SHANITA AVALOS ACCT: [id number] UNIT: [id number] : 1950 LOC: [facility] ROOM / BED: 1010-ERT / A AGE / SEX: 75 / M ADM STATUS: ADM IN SERVICE 1116 ORDERING PHYSICIAN: ESTEBAN BRAVO PROCEDURE(s): RLDVT - RT Lower DVT REASON: right lower ext swelling ORDER NUMBER(s): [id number], ACCESSION NUMBER(s): [id number] Right lower extremity venous duplex Clinical History: right lower ext swelling Comparison: None Findings: Duplex Doppler evaluation of the deep venous system of the right lower extremity from the common femoral vein to the popliteal vein including color Doppler and spectral/pulsed waveform analysis was performed. The common femoral vein demonstrates appropriate compressibility and waveform variability. There is compressibility/patency of the great saphenous vein at the proximal thigh. The femoral vein demonstrates appropriate compressibility and waveform variability. The deep femoral vein demonstrates appropriate compressibility and waveform variability. The popliteal vein demonstrates appropriate compressibility and waveform variability. There is normal compressibility at the tibioperoneal trunk. Impression: No right femoropopliteal venous thrombosis. If clinical concern/symptoms persist or worsen, short-interval follow-up study is suggested. - PATIENT: SHANITA AVALOS ACCT: [id number] UNIT: [id number] : 1950 LOC: [facility] ROOM / BED: [address] [place] [address] AGE / SEX: 75 / M ADM STATUS: ADM IN SERVICE 1116 ORDERING PHYSICIAN: ESTEBAN BRAVO RESIDENT PROCEDURE(s): CTACH - CT ANGIO CHEST CONTRAST REASON: sudden onsetSOB, tachy, paula sc>4, h/o COPD, ? PE ORDER NUMBER(s): [id number], ACCESSION NUMBER(s): [id number] Procedure: CT CT ANGIO CHEST CONTRAST Study Date and Requested Time: 03/30/2025 12:36 PM History: sudden onsetSOB, tachy, wells sc>4, h/o COPD, PE Comparison: None Dose: CTDI: 26.64 mGy DLP: 2.89 mGycm Technique: Multiplanar images of the chest are obtained with contrast. 3-D image postprocessing was performed and images were used for interpretation and reporting. Findings: The thyroid gland is unremarkable. Motion artifact limits evaluation of the pulmonary arteries. With no pulmonary embolism noted centrally. Can not exclude pulmonary embolism within the segmental and subsegmental pulmonary arteries. No evidence of aortic aneurysm or dissection. Atherosclerotic calcification of the aorta. Dsts-ng-crfonpsp cardiomegaly with small pericardial effusion No pneumothorax or pleural effusion. Mild emphysematous changes. Left apical opacity which may represent scarring appears present on chest radiograph dating back to 08/08/2022 Heart within normal limits. No significant mediastinal or hilar adenopathy. Bilateral Lateral Upper abdominal Subcutaneous fat edema. Bilateral renal cysts. Mild wall thickening of the distal esophagus. Mild wall thickening of the stomach. Moderate to large amount of fecal material within the partially visualized colon. Impression: Motion artifact limits evaluation of the pulmonary arteries with no pulmonary embolism noted centrally. Can not completely exclude pulmonary embolism within the segmental and subsegmental pulmonary arteries. Redemonstration of left apical scarring. Mild emphysematous changes. Lkab-aj-zxxxasbg cardiomegaly with small pericardial effusion. Reflux of contrast into the IVC and hepatic veins suggestive of right heart dysfunction. Mild esophagitis with mild gastritis. - PATIENT: SHANITA AVALOS ACCT: [id number] UNIT: [id number] : 1950 LOC: ER ROOM / BED: / AGE / SEX: 75 / M ADM STATUS: REG ER SERVICE 1 ORDERING PHYSICIAN: MEENU ANDREWS MD PROCEDURE(s): CXRP - CHEST PORTABLE REASON: sob ORDER NUMBER(s): [id number], ACCESSION NUMBER(s): [id number] CHEST RADIOGRAPH Indication: sob Technique: 1 view Comparison: XY CHEST PORTABLE on DOS: 12/18/24, CHEST PORTABLE on DOS: 08/08/22, CXRP on DOS: 08/08/22 FINDINGS: Lines and Tubes: External leads. Lungs/Pleura: More conspicuous right basilar consolidation. Similar left apical consolidation. No evident pleural abnormality. Cardiomediastinum: Unremarkable. Other: No acute osseous abnormality. IMPRESSION: 1. Worsening right basilar and similar left superior airspace disease from prior exam. 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1950 Requested By: EMERGENCY EMERGENCY Order Number: [id number] Karon MD: Measurements Intervals [place] Rate: 108 P: 86 [place]: 154 QRS: 228 QRSD: 88 T: 71 QT: 320 QTc: 429 Interpretive Statements Sinus tachycardia Atrial premature complex Right atrial enlargement S1,S2,S3 pattern Right ventricular hypertrophy Minimal ST elevation, lateral leads - Condition at Discharge: Stable Final Diagnosis/Problems List Acute on chronic hypoxic respiratory failure Subsegmental Pulmonary embolism, not completely excluded COPD likely in exacerbation Emphysema Probable pulmonary hypertension Pneumonia likely due to Gram +/- bacteria, rule out PE Ruled out DVT Discharge Disposition: Acute Care Facility Discharge Instruct/Medications Diet: Cardiac 2g Na,low cholest Activity: No Restrictions, As Tolerated Follow Up/Referral: FU WITH PCP ON DC Medications: Continue meds as prescribed in transfer paperwork Scheduled Alendronate Sodium (Alendronate Sodium), 70 MG PO Q7D, (Reported) Amlodipine Besylate (Amlodipine Besylate), 1 TAB PO DAILY, (Reported) Amoxicillin & Pot Clavulanate (Augmentin Tablet), 875 MG PO BID Aspirin (Aspir-81), 1 TAB PO DAILY, (Reported) Atorvastatin Calcium (Lipitor), 40 MG PO DAILY, (Reported) Azithromycin (Azithromycin), 250 MG PO DAILY Yebtrwmuajz-Tninikupvgwd-Vtzjo (Trelegy Ellipta 100-62.5-25 Mcg/INH), 1 PUFF IN DAILY Furosemide (Furosemide), 1 TAB PO DAILY, (Reported) Megestrol Acetate (Megestrol Acetate), 20 MG PO BID, (Reported) Prednisone (Prednisone), 40 MG PO DAILY Venlafaxine Hcl (Venlafaxine Hcl Er), 1 CAP PO DAILY, (Reported) Scheduled PRN Hydrocodone-Acetaminophen (Hydrocodone Bitartrate/AC 10-325 mg), 1 TAB PO EOD PRN for As needed for pain, (Reported) Miscellaneous Medications Allopurinol (Allopurinol), TAB PO, (Reported) B-Complex Vitamins (Vitamin B Complex), 1 CAP PO, (Reported) Crizotinib Base (Xalkori), 200 MG PO, (Reported) Meloxicam (Meloxicam), 7.5 MG PO, (Reported) Naloxone HCl (Naloxone HCl), 4 MG IJ, (Reported) Potassium Chloride (Potassium Chloride Cr), 10 MEQ PO, (Reported) Senna (Senokot), 8.6 MG PO, (Reported) Tamsulosin Hcl (Tamsulosin Hcl), 0.4 MG PO, (Reported) Discontinued Medications Doxycycline Monohydrate (Doxycycline Monohydrate), 100 MG PO Q12HR Hydrocodone-Acetaminophen (Hydrocodone Bitartrate/AC 5-325 mg), 1 TAB PO Q4HPRN, (Reported) Lactulose (Lactulose), 10 GM PO, (Reported) Lorazepam (Lorazepam), 0.5 MG PO, (Reported) Megestrol Acetate (Megestrol Acetate), 20 MG PO, (Reported) Methylprednisolone (Medrol Dosepak), 4 MG PO UD Naproxen Sodium (Naproxen), Unknown Dose PO 2 Tablet, "Lukas chino w, (Reported) Prednisone (Prednisone), 50 MG PO, (Reported) Prednisone (Prednisone), 20 MG PO TID, (Reported) Discharge Statement: "Patient was advised to return to the ER or call 911 if any headaches, dizziness, shortness of breath, chest pain, abdominal pain, bleeding, fevers, or worsening of medical condition. Patient was counseled about treatment plan, medications, possible side effects, patientverbalized understanding. All questions were answered to the best of my ability. This discharge took greater then 30 minutes in planning, reviewing documentation, counseling the patient, and discussing with other team members." ASSESSMENT ASSESSMENT Assessment Pneumonia, rule out PE Date of Service: Apr 01, 2025 Billing Provider: LOBO TREJO MD Common Visit Codes: 62276-BUM/OBS DISCH DAY >30min FEDERICO THAO RESIDENT Apr 01, 2025 18:37 LOBO TREJO MD Apr 03, 2025 19:22
[2025-04-01] MEDS: MORPHINE SULFATE 4 MG/ML SYR/VIAL IV PRN (21:11)
[2025-04-02] VITALS (17 sets, daily range): BP systolic 142–162; BP diastolic 86–103; PULSE 89–111; RESP 16–22; TEMP 97.6–98.6; O2SAT 91–100
[2025-04-02] MEDS: LORazepam 0.5 MG TAB PO ONE (03:50)
[2025-04-02] MEDS: ENOXAPARIN SOD 40 MG/0.4 ML SYRINGE SC SCH (11:01)
[2025-04-02] MEDS: BUDESONIDE (INHALATION) 0.5 MG/2 ML NEB NEB ONE (11:25)
[2025-04-02] MEDS ORDERED: LACTULOSE 20Gm/30ML SOLN PO PRN (11:45)
[2025-04-02] MEDS: BUDESONIDE (INHALATION) 0.5 MG/2 ML NEB NEB SCH (19:14)
--- NOTE | 2025-04-02 19:32 | DVHPNRES ---
Progress Note Date Seen: Apr 02, 2025 Resident Creating Document: FEDERICO THAO Medical Necessity Reason Pt with a Central, PICC or Fol: No Subjective Review of Systems Patient is a 75-year-old male with past medical history of hypertension, COPD on 4 L of oxygen at home, possible congestive heart failure (CHF), and lung cancer status post left-sided resection, presented to [facility] ED with complaint of sudden onset of shortness of breath that began last night. The patient reported that he was in his usual state of health until yesterday and went to sleep feeling well. He awoke with sudden shortness of breath and denied any chest pain. He subsequently called EMS and was brought to the ER for further evaluation. On arrival, the patient was slightly hypertensive with a systolic blood pressure in the 160s and was hypoxic, requiring oxygen at 6 L/min. He also reported right leg swelling over the past two days. He denied any recent malignancy, immobilization, or hemoptysis. Additionally, he denied fever, chills, cough, or sputum production. Vital signs included BP 162/94, HR 99, Temp 97.7F, RR 18, and O2 saturation 98% on 4L nasal cannula. Continuous pulse oximetry and humidifier were initiated. Patient was seen and examined at bedside. Overnight events were reviewed. Patient remains stable for transfer to [place], but not yet stable for discharge home. Objective vital signs Vital Sign Date Time Temp Pulse Resp B/P (MAP) Pulse Ox O2 Delivery O2 Flow Rate FiO2 04/02/25 19:24 99 18 100 04/02/25 19:14 Nasal Cannula* 4 36 04/02/25 17:00 98.6 162/103 (122) 98.6 Total Intake and Output 04/01/25 04/01/25 04/02/25 15:00 23:00 07:00 Intake Total 600 ml 1160 ml 300 ml Balance 600 ml 1160 ml 300 ml medications Current Medications Medications Dose Ordered Sig/Nirav Route Start Time Stop Time Status Last Admin Dose Admin Levalbuterol HCl 0.625 mg Q6HR NEB 03/30/25 12:00 04/02/25 19:13 0.625 MG Ipratropium Aurelia 0.5 mg Q6HR NEB 03/30/25 12:00 04/02/25 19:13 0.5 MG Azithromycin 250 ml @ 125 mls/hr DAILY IV 03/31/25 10:00 04/02/25 11:00 125 MLS/HR Ceftriaxone Sodium 50 ml @ 100 mls/hr DAILY@09 IV 03/31/25 09:00 04/02/25 09:17 100 MLS/HR Methylprednisolone Sodium Succinate 40 mg BID IV 03/30/25 22:00 04/02/25 09:15 40 MG Aspirin 81 mg DAILY PO 03/31/25 10:00 04/02/25 09:15 81 MG Losartan Potassium 50 mg DAILY PO 03/31/25 10:00 04/02/25 09:17 50 MG Naproxen 250 mg Q8HP PRN PO 03/31/25 01:45 03/31/25 01:52 250 MG Acetaminophen/ Hydrocodone Bitart 1 tab Q6HPRN PRN PO 03/31/25 01:45 04/02/25 17:13 1 TAB Pantoprazole Sodium 40 mg DAILY@0600 PO 04/01/25 06:00 04/02/25 04:59 40 MG Lorazepam 1 mg ONCE PRN IV 04/01/25 08:45 04/01/25 13:58 1 MG Morphine Sulfate 2 mg Q6HPRN PRN IV 04/01/25 20:45 04/01/25 21:11 2 MG Enoxaparin Sodium 40 mg DAILY SC 04/02/25 10:00 04/02/25 11:01 40 MG Budesonide 0.5 mg BID NEB 04/02/25 22:00 04/02/25 19:14 0.5 MG Amlodipine Besylate 5 mg DAILY PO 04/03/25 10:00 Docusate Sodium 100 mg BID PO 04/02/25 20:00 Lactulose 30 ml DAILYP PRN PO 04/02/25 11:45 Examination Gen - no pallor, no icterus, no peripheral edema . Skin - Patients skin is warm and dry. HEENT - normocephalic, atraumatic, moist mucous membranes. Neck - full ROM, no LAD, mildly elevated JVP Pulmonary - B/L equal breath sounds with the expiratory wheezing but no crackles, no stridor. cardiovascular - regular S1,S2 heard, no added sounds, no murmurs heard. peripheral pulses normal radial 2+, pedal 2+. capillary refill normal <2 secs. GI - soft, nontender abdomen. no hepatospleenomegaly. Bowel sounds normoactive Neurological - Patient is A/O X 3 . Bilateral upper extremity strength 5/5, bilateral lower extremity strength 5/5, no facial droop, normal speech, no tremor, no sensory deficiets. laboratory and microbiology Laboratory Tests 04/01/25 05:10 Test 04/01/25 05:10 Range/Units Serum Glucose 146 H 74-106 mg/dL Microbiology Date/Time Source Procedure Growth Status 03/31/25 10:30 Sputum Gram Stain Pending Resulted 03/31/25 10:30 Sputum Respiratory Culture - Preliminary Resulted 03/30/25 13:16 Nose MRSA Screen - Final Complete Labs and/or images reviewed: Labs reviewed by me, Image(s) reviewed by me Problem List/Assessment/Plan Problem List/Assessment/Plan Acute on chronic hypoxic respiratory failure Subsegmental Pulmonary embolism, not completely excluded COPD likely in exacerbation Emphysema Probable pulmonary hypertension Pneumonia likely due to Gram +/- bacteria Ruled out PE - V/Q scan- There is normal uptake of radionuclide on both the ventilation and perfusion portions of the examination. No mismatched perfusion defects are demonstrated. Low probability for PE. - Chest X-Ray shows worsening right basilar and similar left superior airspace disease from prior exam. - CT angio chest showed no pulmonary embolism noted centrally. Can not completely exclude pulmonary embolism within the segmental and subsegmental pulmonary arteries. - ECG showed right ventricular hypertrophy - IV steroids - scheduled to nebs - antibiotics ceftriaxone and azithromycin - enoxaparin therapeutic dose - Incentive spirometry - Physical Therapy Ruled out DVT - Extremity Venous Study shows no right femoropopliteal venous thrombosis. PUD prophylaxis: Protonix DVT prophylaxis with the therapeutic Lovenox Goals of care: Full code, discussed for >16 minutes on 04/02/25 Plan discussed with patient Plan discussed with Dr. Sweet Plan discussed with: Patient My Orders My Orders Orders - FEDERICO THAO RESIDENT Procedure Category Date Status Time Docusate Sodium PHA 04/02/25 In Process Capsule (Colace 20:00 Lactulose Oral PHA 04/02/25 In Process 11:45 Complete Blood Count LAB 04/03/25 Verified 04:00 Basic Metabolic Panel LAB 04/03/25 Verified 04:00 Date of Service: Apr 02, 2025 Billing Provider: LOBO SWEET MD Common Visit Codes: [id number] INP/OBS CARE(HIGH) FEDERICO THAO RESIDENT Apr 02, 2025 19:32 LOBO SWEET MD Apr 03, 2025 19:21
[2025-04-02] MEDS: DOCUSATE SOD 100 MG CAP PO SCH (20:00)
[2025-04-02] MEDS ORDERED: THROAT LOZENGES(CEPASTAT) MT ONE (23:00)
[2025-04-03] VITALS (13 sets, daily range): BP systolic 140–163; BP diastolic 90–104; PULSE 92–106; RESP 16–20; TEMP 97.8–98.5; O2SAT 94–100
[2025-04-03 06:42] LABS: Hemoglobin 12.9 g/dL (13.5-17.5)
[2025-04-03 06:47] LABS: Hematocrit 40.7 % (41.0-53.0); Mean Corpuscular Hemoglobin 23.7 pg (28.0-32.0); Mean Corpuscular Volume 74.8 fL (80.0-100.0); Nucleated Red Blood Cells % 0.3 %
[2025-04-03 07:13] LABS: Anion Gap 13 (5-15); Carbon Dioxide 25 mmol/L (20-31); Potassium 3.8 mmol/L (3.5-5.1)
[2025-04-03 07:19] LABS: BUN/Creatinine Ratio 16.9 (10.0-20.0); Blood Urea Nitrogen 14 mg/dL (9-23); Calcium 7.8 mg/dL (8.7-10.4); Chloride 97 mmol/L (98-107); Glucose 161 mg/dL (74-106); Sodium 135 mmol/L (136-145)
[2025-04-03] MEDS: LOSARTAN POTASSIUM 50 MG TAB PO SCH (08:44)
[2025-04-03] MEDS: LOSARTAN POTASSIUM 25 MG TAB PO ONE (11:00)
[2025-04-03] MEDS ORDERED: AZIT-43 PO (11:02)
[2025-04-03] MEDS ORDERED: AUG875T PO (11:02)
[2025-04-03] MEDS ORDERED: FLUT1AER3 IN (11:02)
--- NOTE | 2025-04-03 13:37 | DVHPNRES ---
Progress Note Date Seen: Apr 03, 2025 Resident Creating Document: FEDERICO THAO Medical Necessity Reason Pt with a Central, PICC or Fol: No Subjective Review of Systems Patient is a 75-year-old male with past medical history of hypertension, COPD on 4 L of oxygen at home, possible congestive heart failure (CHF), and lung cancer status post left-sided resection, presented to [facility] ED with complaint of sudden onset of shortness of breath that began last night. The patient reported that he was in his usual state of health until yesterday and went to sleep feeling well. He awoke with sudden shortness of breath and denied any chest pain. He subsequently called EMS and was brought to the ER for further evaluation. On arrival, the patient was slightly hypertensive with a systolic blood pressure in the 160s and was hypoxic, requiring oxygen at 6 L/min. He also reported right leg swelling over the past two days. He denied any recent malignancy, immobilization, or hemoptysis. Additionally, he denied fever, chills, cough, or sputum production. Vital signs included BP 162/94, HR 99, Temp 97.7F, RR 18, and O2 saturation 98% on 4L nasal cannula. Continuous pulse oximetry and humidifier were initiated. Patient was seen and examined at bedside. Overnight events were reviewed. On evaluation today, he states he is well, pain is manageable. His vitals have remained stable for discharge home, follow up visit in discharge clinic. All medications and recommendations were thoroughly explained and the patient states he understands and agrees. Detailed discussion held with patient at bedside were all questions were answered and concerns were addressed. Objective vital signs Vital Sign Date Time Temp Pulse Resp B/P (MAP) Pulse Ox O2 Delivery O2 Flow Rate FiO2 04/03/25 13:02 98.3 94 19 100 04/03/25 13:00 145/91 (109) 04/03/25 11:31 Nasal Cannula 3.0 04/03/25 11:31 32 Total Intake and Output 04/02/25 04/02/25 04/03/25 15:00 23:00 07:00 Intake Total 440 ml 2920 ml 740 ml Output Total 400 ml 840 ml Balance 440 ml 2520 ml -100 ml medications Current Medications Medications Dose Ordered Sig/Nirav Route Start Time Stop Time Status Last Admin Dose Admin Levalbuterol HCl 0.625 mg Q6HR NEB 03/30/25 12:00 04/03/25 11:31 0.625 MG Ipratropium [place] 0.5 mg Q6HR NEB 03/30/25 12:00 04/03/25 11:31 0.5 MG Azithromycin 250 ml @ 125 mls/hr DAILY IV 03/31/25 10:00 04/03/25 10:21 125 MLS/HR Ceftriaxone Sodium 50 ml @ 100 mls/hr DAILY@09 IV 03/31/25 09:00 04/03/25 09:07 100 MLS/HR Methylprednisolone Sodium Succinate 40 mg BID IV 03/30/25 22:00 04/03/25 09:07 40 MG Aspirin 81 mg DAILY PO 03/31/25 10:00 04/03/25 09:03 81 MG Losartan Potassium 50 mg DAILY PO 03/31/25 10:00 04/03/25 09:04 50 MG Naproxen 250 mg Q8HP PRN PO 03/31/25 01:45 03/31/25 01:52 250 MG Acetaminophen/ Hydrocodone Bitart 1 tab Q6HPRN PRN PO 03/31/25 01:45 04/03/25 11:16 1 TAB Pantoprazole Sodium 40 mg DAILY@0600 PO 04/01/25 06:00 04/03/25 05:37 40 MG Lorazepam 1 mg ONCE PRN IV 04/01/25 08:45 04/01/25 13:58 1 MG Morphine Sulfate 2 mg Q6HPRN PRN IV 04/01/25 20:45 04/03/25 06:48 2 MG Enoxaparin Sodium 40 mg DAILY SC 04/02/25 10:00 04/03/25 09:06 40 MG Budesonide 0.5 mg BID NEB 04/02/25 22:00 04/03/25 07:00 0.5 MG Amlodipine Besylate 5 mg DAILY PO 04/03/25 10:00 04/03/25 09:03 5 MG Docusate Sodium 100 mg BID PO 04/02/25 20:00 04/03/25 09:03 100 MG Lactulose 30 ml DAILYP PRN PO 04/02/25 11:45 Examination Gen - no pallor, no icterus, no peripheral edema . Skin - Patients skin is warm and dry. HEENT - normocephalic, atraumatic, moist mucous membranes. Neck - full ROM, no LAD, mildly elevated JVP Pulmonary - B/L equal breath sounds with the expiratory wheezing but no crackles, no stridor. cardiovascular - regular S1,S2 heard, no added sounds, no murmurs heard. peripheral pulses normal radial 2+, pedal 2+. capillary refill normal <2 secs. GI - soft, nontender abdomen. no hepatospleenomegaly. Bowel sounds normoactive Neurological - Patient is A/O X 3 . Bilateral upper extremity strength 5/5, bilateral lower extremity strength 5/5, no facial droop, normal speech, no tremor, no sensory deficiets. laboratory and microbiology Laboratory Tests 04/03/25 05:56 Test 04/03/25 05:56 Range/Units Serum Glucose 161 H 74-106 mg/dL Microbiology Date/Time Source Procedure Growth Status 03/31/25 10:30 Sputum Gram Stain Pending Resulted 03/31/25 10:30 Sputum Respiratory Culture - Preliminary Resulted 03/30/25 13:16 Nose MRSA Screen - Final Complete Labs and/or images reviewed: Labs reviewed by me, Image(s) reviewed by me Problem List/Assessment/Plan Problem List/Assessment/Plan Acute on chronic hypoxic respiratory failure Subsegmental Pulmonary embolism, not completely excluded COPD likely in exacerbation Emphysema Probable pulmonary hypertension Pneumonia likely due to Gram +/- bacteria Ruled out PE - V/Q scan- There is normal uptake of radionuclide on both the ventilation and perfusion portions of the examination. No mismatched perfusion defects are demonstrated. Low probability for PE. - Chest X-Ray shows worsening right basilar and similar left superior airspace disease from prior exam. - CT angio chest showed no pulmonary embolism noted centrally. Can not completely exclude pulmonary embolism within the segmental and subsegmental pulmonary arteries. - ECG showed right ventricular hypertrophy - IV steroids - scheduled to nebs - antibiotics ceftriaxone and azithromycin - enoxaparin therapeutic dose - Incentive spirometry - Physical Therapy Ruled out DVT - Extremity Venous Study shows no right femoropopliteal venous thrombosis. PUD prophylaxis: Protonix DVT prophylaxis with the therapeutic Lovenox Goals of care: Full code, discussed for >16 minutes on 04/03/25 Plan discussed with patient Plan discussed with Dr. Sweet Plan discussed with: Patient, Daughter (RN) My Orders My Orders Orders - FEDERICO THAO Procedure Category Date Status Time Discharge DISCHARGE 04/03/25 Verified 13:33 Date of Service: Apr 03, 2025 Billing Provider: LOBO SWEET MD Common Visit Codes: [id number] INP/OBS CARE(MOD) MASTERHAYDER RESIDENT Apr 03, 2025 13:37 LOBO SWEET MD Apr 03, 2025 19:21
[2025-04-03] MEDS ORDERED: PRED20TA2 PO (18:11)
== END 2025-04-03 13:39 | disposition home or self-care (01) | DRG 871 ==
LOC: EDBD 02:51 → ER 02:51 → OVERFLOW 11:16 → TELE-WESTW 22:19
PROVIDERS: ADMIT Internal Medicine Geriatric Medicine; ATTEND Internal Medicine Geriatric Medicine
DX: A41.50 Gram-negative sepsis, unspecified (principal); I26.93 Single subsegmental thrombotic pulmonary embolism without acute cor pulmonale; J15.69 Pneumonia due to other Gram-negative bacteria; J96.21 Acute and chronic respiratory failure with hypoxia; J44.1 Chronic obstructive pulmonary disease with (acute) exacerbation; J44.0 Chronic obstructive pulmonary disease with (acute) lower respiratory infection; Z82.0 Family history of epilepsy and other diseases of the nervous system; Z79.899 Other long term (current) drug therapy; E78.5 Hyperlipidemia, unspecified; Z20.822 Contact with and (suspected) exposure to COVID-19; Z99.81 Dependence on supplemental oxygen; J43.9 Emphysema, unspecified; I11.0 Hypertensive heart disease with heart failure; I50.9 Heart failure, unspecified
CPT/HCPCS: 36415; 71045; 71275; 78582; 80048; 80076; 80307; 81001; 83735; 83880; 84484; 85025; 87070; 87081; 87205; 87426; 87804; 93005; 93971; 94640; 96374; 97110; 97116; 97163; 99291; 99292; G0378